=== PATIENT | male | born 1940 | race Caucasian/White ===

== ENCOUNTER → 2017-03-23 | Outpatient (CLI) | payer MEDICARE, OTHER ==
[~2017-03-23] MED LIST: ASP81 PO; ASPI-715 PO; BARIUM SULFATE 176 GM BTL PO ONE; BARIUM SULFATE 340 GM POWD ONE; DON PO; FISH OIL1 CAP PO; GLUC-135 PO; GLUC-283 PO; HCTZ; KET10 PO; LOR5/325 PO; MULT-820 PO; MULT1TAB64 PO; OXYC-868 PO; PANT40TA65 PO; PER PO; SAW450CA3 PO; STOPPED ASA; TAM4 PO; TAMS0.4C25 PO
--- NOTE | 2017-03-23 14:33 | RADIOLOGY IMAGING REPORT ---
FACILITY: [facility] PATIENT NAME: Robert Segundo : 1940 MR: [id number] V: [id number] EXAM DATE: ORDERING PHYSICIAN: MIGUEL ANGEL BERNSTEIN TECHNOLOGIST: Location: [facility] Patient: Robert Segundo : 1940 Visit/Account:[id number] Date of Sevice: 03/23/2017 Exam type: UPPER GI SERIES W/O AIR History: Left upper quadrant pain Comparison: None. Findings: Double contrast upper GI series was performed with thick and thin barium. There is a small hiatal he rnia. A moderate amount of gastroesophageal reflux was observed. A 12 mm barium tablet did enter th e stomach without obstruction although did appear to be mild narrowing of the distal esophagus. The patient did aspirate barium into the tracheobronchial tree.. No abnormality of the stomach duodenal bulb or duodenal C-loop was seen. The fluoroscopy dose area product was 818.91 micro-Mancuso per meter squared IMPRESSION: 1. Small hiatal hernia with a moderate amount of gastroesophageal reflux and mild narrowing at the d istal esophagus The patient did aspirate the barium into the tracheobronchial tree during the examination. He was in no apparent distress when he left the radiology department. A modified barium swallow may be helpfu l Report Dictated By: Tessa Ham MD at 03/23/2017 2:25 PM Report E-Signed By: Tessa Ham MD at 03/23/2017 2:28 PM WSN:[email or web address]
== END ==
LOC: RAD 03:55
PROVIDERS: ATTEND Surgery
DX: K44.9 Diaphragmatic hernia without obstruction or gangrene (principal); K21.9 Gastro-esophageal reflux disease without esophagitis; K22.2 Esophageal obstruction
CPT/HCPCS: 74240

== ENCOUNTER 2017-03-28 04:10 | Day surgery (SDC) | payer MEDICARE, OTHER ==
[~2017-03-28] VITALS: Ht 185.4 cm; Wt 73.5 kg
[2017-03-28] VITALS (7 sets, daily range): BP systolic 119–148; BP diastolic 78–104
[~2017-03-28 04:10] MED LIST changes: -BARIUM SULFATE 176 GM BTL PO ONE; -BARIUM SULFATE 340 GM POWD ONE
[2017-03-28] MEDS ORDERED: LIDOCAINE MPF 1% 5 ML VIAL ONE (10:55)
[2017-03-28] MEDS ORDERED: PROPOFOL EMUL(*) 10MG/ML 20 ML 40 ML ONE (10:55)
[2017-03-28] MEDS ORDERED: NORMOSOL R SOLN(*) 1000 ML BAG 1,000 ML IV PRN (12:00)
[2017-03-28] MEDS ORDERED: MIDAZOLAM 2 MG/2 ML VIAL IVP PRN (12:00)
[2017-03-28] MEDS ORDERED: LIDOCAINE/SOD BICARB 8.4% SYR ID ONE (12:00)
--- NOTE | 2017-03-28 12:52 | Short(Outpt) Discharge Summary ---
Discharge Summary Reason for Hosp/Final Diag: (1) Family history of colon cancer in mother Hospital Course & Plan: Colonoscopy completed without problems but poor prep. (2) Personal history of colonic polyps Status: Chronic Departure Discharge to: Home, Self Care Discharge Instructions Home Meds Reported Medications Tamsulosin Hcl (FLOMAX) 0.4 Mg Cap.er.24h, 0.4 MG PO QDAY, CAP 03/20/17 Follow up Referrals: General Surgery - In Two Weeks @ Surgery, General with Miguel Angel Bernstein Md Diet: Regular Activity: As Tolerated Special Instructions: Your colonoscopy was completed without any problems but your prep was very poor. We will need to repeat your colonoscopy in the next couple of months. Crystal, my clinic nurse, will call you in the next day or two to schedule the gastric emptying study and a follow up appointment to see me back in my office. MIGUEL ANGEL BERNSTEIN MD Mar 28, 2017 12:52
== END 2017-03-28 14:20 | disposition short-term general hospital (02) ==
LOC: OR 04:10
PROVIDERS: ATTEND Surgery
DX: Z12.11 Encounter for screening for malignant neoplasm of colon (principal); Z86.010 Personal history of colon polyps; Z80.0 Family history of malignant neoplasm of digestive organs
CPT/HCPCS: 00812; G0121; J2001; J2704

== ENCOUNTER → 2017-04-12 | Outpatient (CLI) | payer MEDICARE, OTHER ==
--- NOTE | 2017-04-12 12:57 | RADIOLOGY IMAGING REPORT ---
FACILITY: [facility] [place] PATIENT NAME: Robert Segundo : 1940 MR: [id number] V: [id number] EXAM DATE: ORDERING PHYSICIAN: MIGUEL ANGEL BERNSTEIN TECHNOLOGIST: Location: [facility] [place] Patient: Robert Segundo : 1940 Visit/Account:[id number] Date of Sevice: 04/12/2017 GASTRIC EMPTYING HISTORY: Left upper quadrant abdominal pain TECHNIQUE: 2.2 mCi technetium 99m sulfur colloid was mixed with 4 ounces of cooked eggbeaters which was 8 with toast and small volume of water. The patient ingested the mixture while seated in an uprig ht position. Multiple sequential gamma camera images were obtained of the upper abdomen. A computer-g enerated region of interest was placed around the stomach and the time activity curve for the stomach was derived and the gastric emptying T1/2 was calculated. COMPARISON: Upper GI 03/23/2017 FINDINGS: Image assessment: Normal filling of stomach, no evidence of gastroesophageal reflux and normal progr ession of radionuclide into proximal small bowel. Half life radionuclide in the stomach: 103 minutes (normal 20-45 minutes). 4 hour emptying greater than 90%, (normal greater than 90%). IMPRESSION: 1. Delayed early gastric emptying, but normal late gastric emptying. Report Dictated By: Alysha Mendes MD at 04/12/2017 12:48 PM Report E-Signed By: Alysha Mendes MD at 04/12/2017 12:52 PM WSN:[id number]
== END ==
LOC: NUC 02:40
PROVIDERS: ATTEND Surgery
DX: R10.12 Left upper quadrant pain (principal)
CPT/HCPCS: 78264; A9541

== ENCOUNTER 2017-04-18 13:00 | Outpatient (RCR) | payer MEDICARE, OTHER ==
--- NOTE | 2017-02-21 11:07 | SLP PLAN OF CARE ---
SPEECH PATHOLOGY PROGRESS REPORT - Physician: Radha Dimas SLIVER LAP MACHINE TENDER Progress Note Date: 02-20-17 Clinician: Leila Tejada M.S., CCC-QUARTZ MOUNTER Patient: Robert Segundo : 1940 The patient has been attends ST at [facility] 2/wk for a total of 6tx since last report. He attends scheduled visits regularly and is now driving. His neurologist cleared him to drive this week. 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 -progressing: Pt reports decreased word finding events outside of tx. Within tx pt averages 80-90%. Pt reports he does not feel he has returned to PLOF with this cognitive skill 2. Pt will demonstrate improved vocal production with max phonation time of 8- 10seconds with good vocal quality to improve overall intelligibility of speech -progressing: pt reports is is performing tasks as instructed for home program including EMST and max phonation tasks. Vocal quality is has improved overall but good quality is intermittent with breathy, low volume voice persisting approx 3-4 days a week as reported by pt. GOALS MET 1. Patient will carry out directives of increasing complexity in everyday activities with 90%. -progressing: Pt has returned to limited work responsibilities. He has returned to driving. Within tx he typically averages 95% accuracy SUMMARY Pt has returned to limited work responsibilities. He has returned to driving. He reports continued word finding deficits outside of tx and this is supported within tx performances. Pt reports increased compliance with at home voice program. Vocal quality has improved overall but good quality is intermittent with breathy, low volume voice persisting approx 3-4 days a week as reported by pt. RECOMMENDATION In response to the patients progress, it is recommended ST continue at 2wk6 to address above CURRENT POC Thank you for referring this patient to [facility], Speech- Language Pathology. Please call [phone] to contact the QUARTZ MOUNTER. PROGNOSIS: Very Good. Pt progressing toward his goals. Thank you for this referral. Please call [phone] Leila Tejada M.S., CCC-QUARTZ MOUNTER LSVT [facility] Certified [facility] Certified Physician Signature Date MTDD
--- NOTE | 2017-02-21 13:03 | PT PLAN OF CARE ---
Physician: Dr. 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 MET In 6 weeks pt will improve CB&M score to > 65/96 indicating improve functional mobility with ADL's. In Progress In 6 weeks pt will be able to maintain SLS balance for >30 B indicating improved functional balance for ADL's. In Progress PATIENT'S GOAL: Return to prior functional as much as he can attain Status of Patient's Goals: 1/3 Goals MET, 2/3 In progress Patient Compliance: Excellent Prognosis: Excellent Reasons for continuing therapy: Peter shows improvement in balance as well as power and speed with functional movement resulting in decreased fall risk and improved mobility. Deficits remain in single leg stance activities as well as with lingering strength deficits between sides. Further PT is indicated to return patient to prior level of function and decrease future injuries with equalizing strength deficits. Gait: Wide LEMUEL with lateral and horizontal trunk shifting Strength: R LE 4+/5 quads and hip flexors, 4/5 hamstrings, ankle DF and peroneals are 5-/5 while L LE 5/5 except hamstrings 4/5. Special Tests: CB&M 01/26/17 Score 63/96 Mobility: Sit<>stand without UE use in one attempt If you have any questions or concerns, please feel free to contact me at . Thank you, Maihsa Aguirre, PT, DPT, CLT [facility]
--- NOTE | 2017-03-23 18:01 | PT PLAN OF CARE ---
Physician: Dr. 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 MET In 6 weeks pt will improve CB&M score to > 65/96 indicating improve functional mobility with ADL's. MET In 6 weeks pt will be able to maintain SLS balance for >30 B indicating improved functional balance for ADL's. In Progress PATIENT'S GOAL: Return to prior functional as much as he can attain Status of Patient's Goals: 2/3 Goals MET, 2/3 In progress Patient Compliance: Excellent Prognosis: Excellent Reasons for continuing therapy: Robert continues to show improvement in speed, strength, and stability. As progress is maintained pt expectations of further progress are raised with pt realizing his potential. Further PT is indicated for this patient for progress towards lingering deficits in gait and SLS balance to decrease fall risk and further potential injury. Gait: Wide LEMUEL with lateral and horizontal trunk shifting Strength: R LE 4+/5 quads and hip flexors, 4/5 hamstrings, ankle DF and peroneals are 5-/5 while L LE 5/5 except hamstrings 4/5. Special Tests: CB&M 03/21/17 Score 69/96 Mobility: Sit<>stand without UE use in one attempt If you have any questions or concerns, please feel free to contact me at . Thank you, Maisha Aguirre, PT, DPT, CLT LILIAN
--- NOTE | 2017-04-03 14:22 | SLP PLAN OF CARE ---
SPEECH PATHOLOGY PROGRESS REPORT , 10th Visit Physician: Radha Dimas SUPERVISOR [employer]ANT Progress Note Date: 04-03-17 Clinician: Leila Tejada M.S., CCC-MONUMENT ERECTOR Patient: Robert Segundo : 1940 [address] patient attends [address] at [facility] 2/wk for a total of 10tx since last report. He attends scheduled visits regularly. He is driving and reports no problems. 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 -progressing: Pt reports he continues to experience difficulty with word finding in everyday conversation including high frequency words. He averages 80 -90% accuracy with word finding tasks in treatment given extended response time. Category and divergent naming that incorporates more abstract thinking are more challenging areas for the pt in treatment. Pt reports he does not feel he has returned to [facility] with this cognitive skill. 2. Pt will demonstrate improved vocal production with max phonation time of 8- 10seconds with good vocal quality to improve overall intelligibility of speech -progressing: Pt continues to report compliance with home voice program including EMST and max phonation tasks. Good vocal quality continues to be intermittent throughout the day. Pt reported that he experiences acid reflux more frequently but does not take medication for it. He reported that he has an appointment for an esophagram on 04/12/17 and will report back about that. Educated pt on the effects acid reflux has on his vocal hygiene. RECOMMENDATION In response to the patients progress, it is recommended ST continue at 2wk6 to address above POC. PROGNOSIS: Very Good. Pt progressing toward goals. Thank you for this referral. Please call [phone] Leila Tejada M.S., CCC-MONUMENT ERECTOR LSVT [facility] Certified [facility] Certified LILIAN
--- NOTE | 2017-04-20 11:50 | SLP DISCHARGE NOTE ---
SPEECH THERAPY DISCHARGE SUMMARY Discharge from : 04-17-17 Clinician: Leila Tejada M.S., CCC-CAVITY PUMP OPERATOR Patient: Robert Segundo : 1940 The pt has met all ST goals and is DC'd from as of 04-17-17 The patient has met the following goals: Short Term Goal 1.Pt will complete functional word finding tasks with 95% accuracy to improve functional communication for needs and wants. Goal Met: Pt is performing with 95-100% accuracy with this goal and has returned to plof 2. Pt will demonstrate improved vocal production with max phonation time of 8-10seconds with good vocal quality to improve overall intelligibility of speech. DC Goal: Pt has met max potential for this goal. He currently reaches average of 6second phonation time but reports he regularly achieves longer phonation times when practicing at home. Hole Digger Goal 1. 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 Vocal quality has improved but is not yet at plof. It is recommended the patient consult with an ENT for a possible laryngoscopy and return to speech therapy for further voice treatment at that time if indicated. Verbal and written education on supporting healthy cognitive aging through cognitive and physical activities, social engagement, and nutrition was provided as well as education on stroke awareness. It was a pleasure working with this patient. RECOMMENDATION DC from at this time. Continue with established home program for cognitive health. Thank you for referring this patient to , Speech- Language Pathology. Please call [phone] to contact the CAVITY PUMP OPERATOR. Respectfully, Leila Tejada M.S., CCC-CAVITY PUMP OPERATOR MTDD
--- NOTE | 2017-04-20 15:45 | PT PLAN OF CARE ---
Physician: Dr. 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 MET In 6 weeks pt will improve CB&M score to > 65/96 indicating improve functional mobility with ADL's. MET In 6 weeks pt will be able to maintain SLS balance for >30 B indicating improved functional balance for ADL's. In Progress PATIENT'S GOAL: Return to prior functional as much as he can attain Status of Patient's Goals: 2/3 Goals MET Patient Compliance: Excellent Prognosis: Excellent Reasons for discharge from therapy: Robert is to discharge from physical therapy at this time secondary to completion of 2/3 functional goals as well as with upcoming hospital admittance for prostate surgical intervention. Upon discharge pt showed good progress towards increased strength and balance for return to functioning. With improvements in physical therapy pt had increasing expectations of functional potential. At the time of discharge pt reported that he felt he was 75% of where he would like to be and will likely seek further PT intervention in the future to continue progress in functional recovery. Strength: B LE strength as tested by MMT: 5/5 in all functional planes excluding PF B at 4/5. Special Tests: CB&M 03/21/17 Score 69/96 CB&M 04/18/17 Score 71/96 Mobility: Sit<>stand without UE use in one attempt If you have any questions or concerns, please feel free to contact me at . Thank you, Maisha Aguirre, PT, DPT, CLT MTDD
== END 2017-04-18 18:00 | disposition home or self-care (01) ==
LOC: PT 13:00
PROVIDERS: ATTEND Physical Medicine & Rehabilitation
DX: I61.9 Nontraumatic intracerebral hemorrhage, unspecified (principal); I69.119 Unspecified symptoms and signs involving cognitive functions following nontraumatic intracerebral hemorrhage; R47.81 Slurred speech; R13.12 Dysphagia, oropharyngeal phase; R13.11 Dysphagia, oral phase; R26.89 Other abnormalities of gait and mobility; Z96.0 Presence of urogenital implants

== ENCOUNTER → 2017-05-17 | Outpatient (CLI) | payer MEDICARE, OTHER ==
--- NOTE | 2017-05-17 15:22 | RADIOLOGY IMAGING REPORT ---
FACILITY: [facility] [place] [place] PATIENT NAME: Robert Segundo : 1940 MR: [id number] V: [id number] EXAM DATE: ORDERING PHYSICIAN: POLI CADENA TECHNOLOGIST: Location: [facility] Patient: Robert Segundo : 1940 Visit/Account:[id number] Date of Sevice: 05/17/2017 TESTICULAR HISTORY: Scrotal swelling recent post prostatectomy COMPARISON: None. FINDINGS: Testes: The right testicle measures 4.1 x 2.5 x 2.3 cm with normal appearing arterial and venous flow . The left measures 4.9 x 2.5 x 2.8 cm and appears extremely heterogeneous and hypervascular particular ly along the upper two thirds of the left testicle. Epididymides: The head of the epididymis on the right measures 1.7 cm in diameter the head of the epididymis on the left measures two and meters in diameter appears heterogeneous. Small cysts are identified in both epididymides There is marked thickening of the scrotal skin. Hydrocele: Large bilateral hydroceles Varicocele: None. IMPRESSION: Large bilateral hydroceles and marked thickening of the scrotal skin these could represent postoperat shazia changes. The left testicle appears extremely heterogeneous and hypervascular. Changes could be related to orc hitis versus testicular tumor. Follow-up recommended Head epididymis on the left appears heterogeneous possibly related to epididymitis Report Dictated By: Tessa Ham MD at 05/17/2017 3:12 PM Report E-Signed By: Tessa Ham MD at 05/17/2017 3:17 PM WSN:[email or web address]
== END ==
LOC: US 01:12
PROVIDERS: ATTEND Physician Assistant
DX: N43.2 Other hydrocele (principal); N50.1 Vascular disorders of male genital organs; N50.89 Other specified disorders of the male genital organs
CPT/HCPCS: 76870

== ENCOUNTER → 2017-08-07 | Outpatient (CLI) | payer MEDICARE, OTHER ==
[~2017-08-07] MED LIST changes: +CHOL500016 PO; +RANI-318 PO; +SULF-198 PO
== END ==
LOC: LAB 07:51
PROVIDERS: ATTEND Physician Assistant Medical
DX: N45.1 Epididymitis (principal)
CPT/HCPCS: 36415; 84270; 84403

== ENCOUNTER → 2017-08-08 | Outpatient (CLI) | payer MEDICARE, OTHER ==
--- NOTE | 2017-08-08 10:22 | RADIOLOGY IMAGING REPORT ---
FACILITY: [facility] PATIENT NAME: Robert Segundo : 1940 MR: [id number] V: [id number] EXAM DATE: ORDERING PHYSICIAN: RUPERTO JACINTO TECHNOLOGIST: [place] [facility] [place] : 1940 Visit/Account:[id number] Date of Sevice: 08/08/2017 TESTICULAR HISTORY: Left-sided epididymitis COMPARISON: May 17, 2017 FINDINGS: Testes: The right testicle measures 4.4 x 2.5 x 2.5 cm.. Arterial and venous flow identified within the right testicle. No demonstration of a right testicular mass. The left testicle measures 3.9 x 2 .6 x 2.2 cm arterial and venous flow demonstrated.. The echotexture to the left testicle appears het erogeneous similar to the prior study. Epididymides: Head epididymis on the right measures 1.8 cm. Head epididymis on the left measures 1.2 cm and contains a small cyst. Blood flow is unremarkable in each epididymis by color Doppler ultras ound. Hydrocele: There are small bilateral hydroceles, right greater than left although both decreased in s ize when compared to the prior study Varicocele: None. IMPRESSION: Small bilateral hydroceles, right greater than left although decreased when compared the prior study The left testicle appears heterogeneous similar to the prior study. The differential diagnosis would include orchitis or testicular neoplasm although discrete testicular mass not demonstrated. Small cyst in the head epididymis on the left Report Dictated By: Tessa Ham MD at 08/08/2017 10:13 AM Report E-Signed By: Tessa Ham MD at 08/08/2017 10:18 AM WSN:[email or web address]
== END ==
LOC: US 01:19
PROVIDERS: ATTEND Physician Assistant Medical
DX: N43.2 Other hydrocele (principal); N50.3 Cyst of epididymis
CPT/HCPCS: 76870

== ENCOUNTER 2017-08-10 13:00 | Outpatient (RCR) | payer MEDICARE, OTHER ==
--- NOTE | 2017-05-14 16:26 | PT INITIAL EVALUATION ---
MEDICAL DIAGNOSIS: Post-CVA TREATMENT DIAGNOSIS: Altered gait and balance post-CVA DATE OF ONSET: 10/26/16 SUBJECTIVE: Robert Segundo returns to PT for gait, balance and strength improvement from his basal ganglia CVA (10/26/16). He had radical prostatectomy 04/20/17 and relates that he's weakened from that. He'd like to return to his prior level of function before his CVA, including recreations frisbee golf, exercising with weights and cardiovascular equipment for 30 to 90 minutes daily. Currently, Robert relates he is sedentary most of the day. REHAB PROBLEM LIST: Decreased Strength Decreased Endurance Decreased Balance Decreased Function Decreased Mobility Decreased Gait PREVIOUS MEDICAL HISTORY: Kidney cancer with tumor removal, B knees and ankle surgeries with worn R ankle, intermittent HTN. 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 OBJECTIVE: Posture: Heels 4" apart, mild forward head posture, midline head and trunk. ROM: LE AROM WNL. Strength: LE's 4/5. Special Tests: CB&M 49/96, a 51% impairment. Mobility: Independent transfers, without UE use with immediate standing balance. Gait: Robert ambulate with slow cadance, normal line of progression, reduced push off B and R fore foot weakness at heelstrike. Balance: R-sided balance disturbance with tandem stand, turning R 180 degrees. Cross over walking with infrequent R foot to midline but not past nelson. Single leg stand <3 seconds, B. Visual fixation without weaving in gait. Static stand on foam with eyes closed with increased postural sway A/P. Other Objective Findings: Standing endurance 10 minutes. ASSESSMENT: Robert Segundo presents with reduced balance, altered gait, weakness and limited endurance after his surgery in April, and from his CVA in 2017. He did well [facility] balance exercise today. Short Term Goals 4 weeks: Robert scores 60/96 on the CB&M, tolerates 30 min. of aerobic exercise. 8 weeks: Robert scores 71/96 on the CB&M, tolerates 60 min. of exercise, ambulates at a fast cadance. 12 weeks: Robert plays recreational frisbee golf with balance control, exercises 90 minutes, climbs multiple flights of stairs without rest. Patient's Goals Return to prior level of activity before the CVA. PLAN: Patient to be seen for Strengthening/condition Stretching Neuromuscular Re-ed Gait Trg/Balance Trg Home Exercise Program 3x/Week for 3-4 months Thank you for this referral. If you have any questions, comments, or concerns about this report or plan, please contact me at . HARRYD
--- NOTE | 2017-06-04 14:39 | PT PLAN OF CARE ---
Physician: LINDSEY Garza Patient is being seen: 3x/week Therapist: Petra Leslie PT Medical Diagnosis: Post-CVA Treatment Diagnosis: Altered gait and balance post-CVA Date of Onset: 10/26/16 Date of Initial Evaluation: 05/14/17 Date patient was last seen: 06/04/17 Number of treatments: 10 Number of cancellations/No shows: 0 INTERVENTIONS: Strengthening/condition Neuromuscular Re-ed Gait Trg/Balance Trg Home Exercise Program GOALS: 4 weeks: Robert scores 60/96 on the CB&M (met), tolerates 30 min. of aerobic exercise (progressing). 8 weeks: Not met: Robert scores 71/96 on the CB&M, tolerates 60 min. of exercise , ambulates at a fast cadance. 12 weeks: Not met: Robert plays recreational [employer] golf with balance control, exercises 90 minutes, climbs multiple flights of stairs without rest. PATIENT'S GOAL: Return to prior level of activity before the CVA. progressing Patient Compliance: Excellent Prognosis: Excellent Reasons for continuing therapy: S: Robert relates that he's still fatigued due to his infection, but feels more steady with gait and balance. His R ankle OA limits single leg standing activities in our balance training, otherwise, he feels his balance is challenged. Posture: Heels 4" apart, mild forward head posture, midline head and trunk. Strength: LE's 4+/5. Gait/Balance: Robert's gait endurance has improved to 1,933 feet in 6 minutes with good ankle DF endurance, strong push off. He's fatigued with one flight of stairs. Single leg stand now 18 seconds L, remains 3 seconds R due to R ankle OA. He turns with balance control, has slight perturbation with rapid walk/stop. Special Tests: CB&M improved from 49/96 to 60/96, a 37% impairment. Mobility: Independent transfers, without UE use with immediate standing balance. A/P: Robert Segundo is improving gait, endurance, balance and strength. His infection and antibiotic use does limit endurance. If you agree, we'll continue at 3x/week another 2 months to goals set. Thank you. LILIAN
--- NOTE | 2017-06-27 14:14 | PT PLAN OF CARE ---
Physician: LINDSEY Garza Patient is being seen: 3x/week Therapist: Petra Leslie PT Medical Diagnosis: Post-CVA Treatment Diagnosis: Altered gait and balance post-CVA Date of Onset: 10/26/16 Date of Initial Evaluation: 05/14/17 Date patient was last seen: 06/27/17 Number of treatments: 20 Number of cancellations/No shows: 0 INTERVENTIONS: Strengthening/condition, Neuromuscular Re-ed, Gait Trg/Balance Trg GOALS: 4 weeks: Robert scores 60/96 on the CB&M (met), tolerates 30 min. of aerobic exercise (met). 8 weeks: Robert scores 71/96 on the CB&M (progressing), tolerates 60 min. of exercise (not met), ambulates at a fast cadance (met). 12 weeks: Not met: Robert plays recreational [employer]OKK[employer]bee golf with balance control, exercises 90 minutes, climbs multiple flights of stairs without rest. PATIENT'S GOAL: Return to prior level of activity before the CVA. (progressing) Patient Compliance: Excellent Prognosis: Excellent Reasons for continuing therapy: S: Robert relates he's standing to cook meals and is doing gym exercise. He hasn' t been able to play frisbee golf, exercise 60 minutes or climb multiple flights of stairs yet. His infection/antibiotics fatigues him greatly. Posture: Heels 4" apart, mild forward head posture, midline head and trunk. ROM: LE AROM WNL. Strength: B hip flexion, abduction, extension: 4/5. B knee extension, B hip adduction: 5/5. B knee flexion: 4+/5. B ankle PF: 4/5. B ankle DF: 3/5. Gait: Gait speed increased to 6 ft/sec., 6 minute walk test 2180 feet, no stops. Balance: Single leg stand now 10 seconds R (R ankle OA), >45 seconds L. Special Tests: CB&M 70/96, a 27% impairment. Mobility: Independent transfers, without UE use with immediate standing balance. A/P: Robert Segundo is improving gait, balance, standing function. he needs to continue with balance, endurance work, strengthening to return to sports and standing function. If you agree, we'll continue 3x/week another 8 weeks. Thank you. LILIAN
--- NOTE | 2017-07-25 14:47 | PT PLAN OF CARE ---
Physician: LINDSEY Garza Patient is being seen: 3x/week Therapist: Petra Leslie PT Medical Diagnosis: Post-CVA Treatment Diagnosis: Altered gait and balance post-CVA Date of Onset: 10/26/16 Date of Initial Evaluation: 05/14/17 Date patient was last seen: 07/25/17 Number of treatments: 30 Number of cancellations/No shows: 0 INTERVENTIONS: Strengthening/condition Neuromuscular Re-ed Gait Trg/Balance Trg Home Exercise Program GOALS: 4 weeks: Robert scores 60/96 on the CB&M (met), tolerates 30 min. of aerobic exercise (met). 8 weeks: Not met: Robert scores 71/96 on the CB&M (met), tolerates 60 min. of exercise (progressing), ambulates at a fast cadance (met). 12 weeks: Not met: Robert plays recreational [employer] golf with balance control ( not met), exercises 90 minutes (not met), climbs multiple flights of stairs without rest (not met). PATIENT'S GOAL: Return to prior level of activity before the CVA (progressing). Patient Compliance: Excellent Prognosis: Excellent Reasons for continuing therapy: S: Robert reports he's walking around [place], has mowed half of his lawn. He isn't exercising a full 60 minutes consistently and hasn't returned to frisbee golf. He has c/o fatigue that hasn't changed. Posture: Heels 4" apart, mild forward head posture, midline head and trunk. Gait/balance: Fastest gait speed 6.0 ft/sec., 6 min. "walk" test 2,180 feet. Robert has mild dis-coordination with fast reciprocal foot motion on steps, is slow with lateral shuffling. Single leg stand 5-6 seconds.R, >20 sec. L. Special Tests: CB&M 49/96, a 51% impairment. Mobility: Independent transfers, without UE use with immediate standing balance. A/P: Robert Segundo continues to improve gait, mobility, balance. He could benefit from continued PT for higher level balance training and conditioning for return to his sport. If you agree, we'll continue 3x/week another 6 weeks. Thank you. LILIAN
== END 2017-08-12 ==
LOC: PT 13:00
PROVIDERS: ATTEND Nurse Practitioner Family
DX: I69.118 Other symptoms and signs involving cognitive functions following nontraumatic intracerebral hemorrhage (principal); R26.89 Other abnormalities of gait and mobility; Z90.79 Acquired absence of other genital organ(s)
CPT/HCPCS: 97162

== ENCOUNTER 2017-09-03 13:00 | Outpatient (RCR) | payer MEDICARE, OTHER ==
--- NOTE | 2017-08-13 15:03 | PT PLAN OF CARE ---
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 of aerobic exercise (met). 8 weeks: Not met: Robert scores 71/96 on the CB&M (met), tolerates 60 min. of exercise (progressing), ambulates at a fast cadance (met). 12 weeks: Not met: Robert plays recreational frisbee golf with balance control (progressing), exercises 90 minutes (not met), climbs multiple flights of stairs without rest (progressing), scores 80/96 on the CB&M (not met). PATIENT'S GOAL: Return to prior level of activity before the CVA (progressing). Patient Compliance: Excellent Prognosis: Excellent Reasons for continuing therapy: S: Robert reports he's walking around [place], has mowed his lawn by doing two sessions in one day, an improvement, changed heavy storm windows and has practiced but not competed in frisbee golf. He is still extremely fatigued. R ankle OA pain has flared with balance exercise. Posture: Heels 4" apart, mild forward head posture, midline head and trunk. Gait/balance: Fastest gait speed 6.0 ft/sec., 6 min. "walk" test 2,138 feet. CB& M wasn't done today as I didn't know he needed a three month note until he was fatigued. Robert demonstrated midline cross over stepping for balance recovery. Mobility: Independent. A/P: Robert Segundo continues to improve function and balance. He could benefit from continued PT for higher level balance training and conditioning for return to his sport. If you agree, we'll continue 3x/week another 8 weeks. Thank you. LILIAN
--- NOTE | 2017-09-03 14:00 | PT PLAN OF CARE ---
Physician: LINDSEY Garza Patient is being seen: 3x/week Therapist: Petra Leslie PT Medical Diagnosis: Post-CVA, radical proctectomy Treatment Diagnosis: Altered gait and balance post-CVA Date of Onset: 10/26/16 Date of Initial Evaluation: 05/14/17 Date patient was last seen: 09/03/17 Number of treatments: 44 Number of cancellations/No shows: 0 INTERVENTIONS: Strengthening/condition Neuromuscular Re-ed Gait Trg/Balance Trg GOALS: 4 weeks: Robert scores 60/96 on the CB&M (met), tolerates 30 min. of aerobic exercise (met). 8 weeks: Not met: Robert scores 71/96 on the CB&M (met), tolerates 60 min. of exercise (progressing), ambulates at a fast cadance (met). 12 weeks: Not met: Robert plays recreational frisbee golf with balance control (progressing), exercises 90 minutes (not met), climbs multiple flights of stairs without rest (progressing), scores 80/96 on the CB&M (not met). PATIENT'S GOAL: Return to prior level of activity before the CVA (partially met) . Patient Compliance: Excellent Prognosis: Excellent Reasons for discontinuing therapy: S: Robert relates he's ready to progress his exercise to the [employer] at . His fatigue level hasn't changed. Climbing several flights of stairs still requires a rest and he has practiced frisbee gold with half the distance in throwing. Posture: Heels 4" apart, mild forward head posture, midline head and trunk. Gait/Balance: Fast gait speed 6.1 ft/sec. (able to cross streets), jogging speed 6.8 ft/second. normal stepping, righting and stepping balance reactions. Special Tests: CB&M 70/96, a 26% impairment with Robert's right ankle OA limiting activities but not balance, vision or gait. Mobility: Independent transfers, without UE use with immediate standing balance. A/P: Robert Segundo has improved overall except fatigue level. He's maximized gains with PT. I'll DC PT to independent exercise. Thank you. LILIAN
== END 2017-09-03 18:00 | disposition home or self-care (01) ==
LOC: PT 13:00
PROVIDERS: ATTEND Nurse Practitioner Family
DX: I69.118 Other symptoms and signs involving cognitive functions following nontraumatic intracerebral hemorrhage (principal); R26.89 Other abnormalities of gait and mobility; Z90.79 Acquired absence of other genital organ(s)

== ENCOUNTER → 2017-09-15 | Outpatient (CLI) | payer MEDICARE, OTHER | LOC: RESP 19:32 | PROVIDERS: ATTEND Nurse Practitioner Family | DX: G47.33 Obstructive sleep apnea (adult) (pediatric) (principal); G47.61 Periodic limb movement disorder; G47.36 Sleep related hypoventilation in conditions classified elsewhere ==

== ENCOUNTER → 2017-10-11 | Outpatient (CLI) | payer MEDICARE, OTHER ==
[~2017-10-11] MED LIST changes: +CHOL200074 PO
== END ==
LOC: RESP 19:12
PROVIDERS: ATTEND Nurse Practitioner Family
DX: G47.33 Obstructive sleep apnea (adult) (pediatric) (principal); G47.36 Sleep related hypoventilation in conditions classified elsewhere

== ENCOUNTER 2017-10-16 00:10 | Day surgery (SDC) | payer MEDICARE, OTHER ==
[~2017-10-16] VITALS: Ht 188 cm; Wt 71.2 kg
[2017-10-16] MEDS ORDERED: PROPOFOL EMUL(*) 10MG/ML 20 ML 40 ML ONE (06:27)
[2017-10-16 07:39] VITALS: BP 143/99
[2017-10-16] MEDS ORDERED: LIDOCAINE/SOD BICARB 8.4% SYR ID ONE (08:00)
[2017-10-16] MEDS ORDERED: NORMOSOL R SOLN(*) 1000 ML BAG 1,000 ML IV PRN (08:00)
[2017-10-16 09:51] VITALS: BP 100/62
--- NOTE | 2017-10-16 09:57 | Short(Outpt) Discharge Summary ---
Discharge Summary Reason for Hosp/Final Diag: (1) Personal history of colonic polyps Status: Chronic Hospital Course & Plan: Colonoscopy with polypectomy x2 completed without problems. (2) Family history of colon cancer in mother Departure Discharge to: Home, Self Care Discharge Instructions Home Meds Reported Medications Cholecalciferol (Vitamin D3) (VITAMIN D-3) 2,000 Unit Capsule, 5000 UNIT PO QDAY , CAPSULE 10/09/17 Diet: Regular Activity: As Tolerated Special Instructions: Your colonoscopy was completed without problems and your prep was good (Good Job!!). I removed 2 small polyps from your colon. My office will call you in the next week to let you know what the pathology results are but in any case your next colonoscopy should be in 5 years, health permitting. MIGUEL ANGEL BERNSTEIN MD Oct 16, 2017 09:56
[2017-10-16 10:03] VITALS: BP 91/66
[2017-10-16 10:17] VITALS: BP 105/68
[2017-10-16] MEDS ORDERED: PROPOFOL EMUL(*) 10MG/ML 20 ML 20 ML ONE (10:33)
[2017-10-16 10:36] VITALS: BP 108/73
[2017-10-16 10:39] VITALS: BP 114/79
== END 2017-10-16 11:00 | disposition home or self-care (01) ==
LOC: OR 00:10
PROVIDERS: ATTEND Surgery
DX: Z12.11 Encounter for screening for malignant neoplasm of colon (principal); D12.0 Benign neoplasm of cecum; Z80.0 Family history of malignant neoplasm of digestive organs; Z86.010 Personal history of colon polyps
CPT/HCPCS: 00811; 45380; 88305; J2704

== ENCOUNTER 2017-11-28 16:26 | Emergency (ER) | payer MEDICARE, OTHER ==
--- NOTE | 2017-11-28 16:40 | ER Report ---
History and Physical Time Seen By MD: 16:40 HPI/ROS CHIEF COMPLAINT: Abdominal pain HISTORY OF PRESENT ILLNESS: 77-year-old patient presents to emergency room with complaint of left upper quadrant abdominal pain. Patient states the pain started approximately 5:00 this morning. States that he woke up early having pain. He states that pain has persisted throughout the day. He states that his been episodes where the pain had recessed for a couple of hours and then it returned. He states he was able to go workout this morning is able work out for an hour to and did not have any increasing pain during his workup. He states though that when he returned home that he had worsening pain. He did lay down and that seemed to help for short of time. The pain then returned and has persisted. Patient states is nothing seems to make the pain better or worse although laying down seemed to help, however this afternoon laying down and not improved at all. He is unsure what the underlying cause of his pain is. Patient has not taken any medicine for this. He denies any nausea, vomiting or diarrhea. REVIEW OF SYSTEMS: Respiratory: No cough, no dyspnea. Cardiovascular: No chest pain, no palpitations. Gastrointestinal: As noted above Musculoskeletal: No back pain. Allergies: Uncoded Allergies: MOLD EXTRACTS (Allergy, Mild, UNKNOWN, 03/26/17) POLLEN EXTRACTS (Allergy, Mild, UNKNOWN, 03/26/17) Home Meds Active Scripts Tamsulosin Hcl (FLOMAX) 0.4 Mg Cap.er.24h, 0.4 MG PO DAILY, #15 CAP Prov:ANDI TEJEDA [facility] 11/28/17 Hydrocodone Bit/Acetaminophen (HYDROCODON-ACETAMINOPHEN 5-325) 1 Each Tablet, 1 EACH PO Q4-6H PRN for PAIN, #12 TAB Prov:ANDI TEJEDA [facility] 11/28/17 Discontinued Reported Medications Cholecalciferol (Vitamin D3) (VITAMIN D-3) 2,000 Unit Capsule, 5000 UNIT PO QDAY, CAPSULE 10/09/17 Past Medical/Surgical History Patient has a past medical history of CVA, TIA, PVCs, hypertension, hyperlipidemia, asthma, pneumonia, and will hernia, reflux, frequent UTI, enlarged prostate, generalized arthritis, kidney cancer. Patient has surgical history of hernia repair, colonoscopy with polyps removed, total prostatectomy, knee surgery 3, bilateral ankle surgery, thumb surgery, skin lesions removed, surgery on bilateral kidneys for tumors. Reviewed Nurses Notes: Yes Hx Smoking: No Smoking Status: Never Smoker Hx Substance Use Disorder: No Hx Alcohol Use: No Constitutional Vital Sign - Last 24 Hours 11/28/17 11/28/17 11/28/17 11/28/17 16:32 16:42 16:56 17:12 Temp 97.9 Pulse 57 62 Resp 24 B/P (MAP) 180/129 (146) 169/106 (127) Pulse Ox 96 96 O2 Delivery Room Air 11/28/17 11/28/17 11/28/17 11/28/17 17:26 17:50 17:56 18:00 Pulse 67 78 B/P (MAP) 206/130 (155) 204/129 (154) Pulse Ox 93 94 Physical Exam General Appearance: The patient is alert, has no immediate need for airway protection and no current signs of toxicity. ENT: Tympanic membranes are pearly-salguero, auditory canals are patent. Mucous membranes are dry. Respiratory: Chest is non tender, lungs are clear to auscultation. Cardiac: regular rate and rhythm Gastrointestinal: Abdomen is soft and non tender, no masses, bowel sounds normal. Musculoskeletal: Neck: Neck is supple and non tender. Extremities have full range of motion and are non tender. Skin: No rashes or lesions. DIFFERENTIAL DIAGNOSIS: After history and physical exam differential diagnosis was considered for abdominal pain including but not limited to appendicitis, cholecystitis, gastritis and urinary tract infection. Included in the differential is diverticulitis, kidney stone. Medical Decision Making Data Points Result Diagram: 11/28/17 1709 11/28/17 1709 Laboratory Hematology Test 11/28/17 16:39 11/28/17 17:09 Urine Color Yellow Urine Clarity Slightly-cloudy Urine pH 5.0 pH (4.8-9.5) Urine Specific Crivitz 1.019 Urine Protein Negative mg/dL (NEGATIVE) Urine Glucose (UA) Negative mg/dL (NEGATIVE) Urine Ketones Negative mg/dL (NEGATIVE) Urine Blood Large (NEGATIVE) Urine Nitrite Negative (NEGATIVE) Urine Bilirubin Negative (NEGATIVE) Urine Urobilinogen Negative mg/dL (0.2-1.9) Urine Leukocyte Esterase Negative (NEGATIVE) Urine RBC 106 /HPF (0-2/HPF) Urine WBC <1 /HPF (0-5/HPF) Urine Squamous Epithelial Cells None /LPF (</=FEW) Urine Bacteria Negative /HPF (NONE-FEW) Urine Mucus Few /HPF (NONE-FEW) Red Blood Count 5.17 M/uL (4.00-5.60) Mean Corpuscular Volume 96.0 fL (80.0-96.0) Mean Corpuscular Hemoglobin 32.6 pg (26.0-33.0) Mean Corpuscular Hemoglobin Concent 33.9 g/dL (32.0-36.0) Red Cell Distribution Width 14.1 % (11.5-14.5) Mean Platelet Volume 9.0 fL (7.2-11.1) Neutrophils (%) (Auto) 82.1 % (39.4-72.5) Lymphocytes (%) (Auto) 10.3 % (17.6-49.6) Monocytes (%) (Auto) 6.6 % (4.1-12.4) Eosinophils (%) (Auto) 0.5 % (0.4-6.7) Basophils (%) (Auto) 0.5 % (0.3-1.4) Nucleated RBC Relative Count (auto) 0.0 /100WBC Neutrophils # (Auto) 9.2 K/uL (2.0-7.4) Lymphocytes # (Auto) 1.2 K/uL (1.3-3.6) Monocytes # (Auto) 0.7 K/uL (0.3-1.0) Eosinophils # (Auto) 0.1 K/uL (0.0-0.5) Basophils # (Auto) 0.1 K/uL (0.0-0.1) Nucleated RBC Absolute Count (auto) 0.00 K/uL Sodium Level 144 mmol/L (137-145) Potassium Level 3.9 mmol/L (3.5-5.0) Chloride Level 105 mmol/L (98-107) Carbon Dioxide Level 28 mmol/L (22-30) Blood Urea Nitrogen 28 mg/dl (9-21) Creatinine 1.40 mg/dl (0.66-1.25) Glomerular Filtration Rate Calc 49.1 Random Glucose 128 mg/dl (75-110) Calcium Level 9.4 mg/dl (8.4-10.2) Total Bilirubin 0.7 mg/dl (0.2-1.3) Aspartate Amino Transf (AST/SGOT) 19 U/L (0-35) Alanine Aminotransferase (ALT/SGPT) 25 U/L (0-56) Alkaline Phosphatase 59 U/L (0-126) Total Protein 7.4 g/dl (6.3-8.2) Albumin 4.3 g/dl (3.5-5.0) Amylase Level 85 U/L (0-110) Lipase 30 U/L (23-300) Helicobacter pylori IgG Antibody Negative (NEGATIVE) Chemistry Test 11/28/17 16:39 11/28/17 17:09 Urine Color Yellow Urine Clarity Slightly-cloudy Urine pH 5.0 pH (4.8-9.5) Urine Specific Crivitz 1.019 Urine Protein Negative mg/dL (NEGATIVE) Urine Glucose (UA) Negative mg/dL (NEGATIVE) Urine Ketones Negative mg/dL (NEGATIVE) Urine Blood Large (NEGATIVE) Urine Nitrite Negative (NEGATIVE) Urine Bilirubin Negative (NEGATIVE) Urine Urobilinogen Negative mg/dL (0.2-1.9) Urine Leukocyte Esterase Negative (NEGATIVE) Urine RBC 106 /HPF (0-2/HPF) Urine WBC <1 /HPF (0-5/HPF) Urine Squamous Epithelial Cells None /LPF (</=FEW) Urine Bacteria Negative /HPF (NONE-FEW) Urine Mucus Few /HPF (NONE-FEW) White Blood Count 11.2 k/uL (4.5-11.0) Red Blood Count 5.17 M/uL (4.00-5.60) Hemoglobin 16.8 g/dL (14.0-18.0) Hematocrit 49.6 % (42.0-52.0) Mean Corpuscular Volume 96.0 fL (80.0-96.0) Mean Corpuscular Hemoglobin 32.6 pg (26.0-33.0) Mean Corpuscular Hemoglobin Concent 33.9 g/dL (32.0-36.0) Red Cell Distribution Width 14.1 % (11.5-14.5) Platelet Count 227 K/uL (150-450) Mean Platelet Volume 9.0 fL (7.2-11.1) Neutrophils (%) (Auto) 82.1 % (39.4-72.5) Lymphocytes (%) (Auto) 10.3 % (17.6-49.6) Monocytes (%) (Auto) 6.6 % (4.1-12.4) Eosinophils (%) (Auto) 0.5 % (0.4-6.7) Basophils (%) (Auto) 0.5 % (0.3-1.4) Nucleated RBC Relative Count (auto) 0.0 /100WBC Neutrophils # (Auto) 9.2 K/uL (2.0-7.4) Lymphocytes # (Auto) 1.2 K/uL (1.3-3.6) Monocytes # (Auto) 0.7 K/uL (0.3-1.0) Eosinophils # (Auto) 0.1 K/uL (0.0-0.5) Basophils # (Auto) 0.1 K/uL (0.0-0.1) Nucleated RBC Absolute Count (auto) 0.00 K/uL Glomerular Filtration Rate Calc 49.1 Calcium Level 9.4 mg/dl (8.4-10.2) Total Bilirubin 0.7 mg/dl (0.2-1.3) Aspartate Amino Transf (AST/SGOT) 19 U/L (0-35) Alanine Aminotransferase (ALT/SGPT) 25 U/L (0-56) Alkaline Phosphatase 59 U/L (0-126) Total Protein 7.4 g/dl (6.3-8.2) Albumin 4.3 g/dl (3.5-5.0) Amylase Level 85 U/L (0-110) Lipase 30 U/L (23-300) Helicobacter pylori IgG Antibody Negative (NEGATIVE) Urinalysis Test 11/28/17 16:39 Urine Color Yellow Urine Clarity Slightly-cloudy Urine pH 5.0 pH (4.8-9.5) Urine Specific Crivitz 1.019 Urine Protein Negative mg/dL (NEGATIVE) Urine Glucose (UA) Negative mg/dL (NEGATIVE) Urine Ketones Negative mg/dL (NEGATIVE) Urine Blood Large (NEGATIVE) Urine Nitrite Negative (NEGATIVE) Urine Bilirubin Negative (NEGATIVE) Urine Urobilinogen Negative mg/dL (0.2-1.9) Urine Leukocyte Esterase Negative (NEGATIVE) Urine RBC 106 /HPF (0-2/HPF) Urine WBC <1 /HPF (0-5/HPF) Urine Squamous Epithelial Cells None /LPF (</=FEW) Urine Bacteria Negative /HPF (NONE-FEW) Urine Mucus Few /HPF (NONE-FEW) EKG/Imaging Imaging EXAMINATION: CT abdomen and pelvis with IV contrast HISTORY: Left upper quadrant abdominal pain. TECHNIQUE: Axial CT images of the abdomen and pelvis were obtained with IV contrast, with coronal and sagittal 2D reconstructed images. One of the following dose optimization techniques was utilized in the performance of this exam: Automated exposure control; adjustment of the mA and/or kV according to the patient's size; or use of an iterative reconstruction technique. Specific details can be referenced in the facility's radiology CT exam operational policy. Contrast: 75 mL of IV Isovue-370. COMPARISON: 04/20/2011. FINDINGS: Liver: Negative. Gallbladder and bile ducts: Negative. Spleen: Negative. Pancreas: Negative. Adrenal glands: Negative. Kidney/ureters/bladder: Moderate hydronephrosis of the left kidney with dilatation of the left ureter to the UVJ. There is an obstructing 3 mm calculus along the posterior left bladder wall in the region of the left UVJ. There are surgical changes along the left kidney compatible with a prior partial nephrectomy with interval resection of a small enhancing mass present on the prior exam of 2011. A small amount of perinephric fluid surrounds the left kidney and tracks along the retroperitoneum, which could be related to a forniceal rupture from obstructive uropathy. There is a mildly delayed left nephrogram compatible with obstructive uropathy. No right-sided hydronephrosis or urinary calculi. Additional surgical changes of a partial right nephrectomy. Subcentimeter hypodensities in both kidneys likely represent small cysts. The urinary bladder is relatively decompressed. There is mild diffuse wall thickening of the bladder with some trabeculation which may relate to chronic bladder outlet obstruction. TURP defect along the central prostate. Bowel and peritoneum: The small bowel and colon are normal in caliber, without evidence of obstruction or any focal inflammatory process. Scattered colonic diverticulosis, without evidence of diverticulitis. Unremarkable appendix. No free fluid or free intraperitoneal air. Lymph node assessment: Negative. Vessels: Scattered vascular calcifications. Normal caliber abdominal aorta. Musculoskeletal: No acute osseous findings. Multilevel degenerative changes throughout the spine. Vertebral body height is maintained along the lumbar spine. Body wall: Small fat-containing umbilical hernia. Lung bases: Negative. IMPRESSION: 1. Moderate hydronephrosis of the left kidney, with an obstructing 3 mm calculus in the distal left ureter at the UVJ. Small amount of retroperitoneal fluid on the left may be due to an associated forniceal rupture. 2. No other acute intra-abdominal findings. 3. Surgical changes along both kidneys compatible with prior partial nephre ctomies. 4. Colonic diverticulosis. Report Dictated By: Bradford Brooks MD at 11/28/2017 5:51 PM Report E-Signed By: Bradford Brooks MD at 11/28/2017 6:01 PM ED Course/Re-evaluation ED Course Patient was admitted to an exam room, history and physical were obtained. Differential diagnoses were considered. On examination lungs are clear, heart was regular, abdomen was soft nontender. I was unable to palpate any areas of tenderness on exam. A CBC, CMP, urinalysis, CT scan of abdomen and pelvis were done. The lab work showed a slightly elevated white count of 11,200. There was a slight shift with 82% neutrophils. I do believe that the left shift of the white blood cells is likely related to stress response secondary to the pain. Urinalysis showed a large amount of blood, 102 red blood cells per high-power field. CMP showed elevated creatinine 1.4 with GFR 43. Patient received a [address] scan of abdomen and pelvis did show a 3 mm stone at the UVJ. I did discuss this with the patient. I believe that is likely the cause of his discomfort. We will go ahead and discharge patient home with Flomax and hydrocodone. He is to limit his activity by pain. If he does not have any improvement in his symptoms the next week eyelike in follow-up with urology. He is return to the emergency room if condition worsens. I discussed this with patient and his and they verbalized understanding and agreement with plan. Decision to Disposition Date: Nov 28, 2017 Decision to Disposition Time: 18:33 Depart Departure Latest Vital Signs Vital Signs Date Time Temp Pulse Resp B/P (MAP) Pulse Ox O2 Delivery O2 Flow Rate FiO2 11/28/17 18:00 204/129 (154) 11/28/17 17:56 78 94 11/28/17 16:32 97.9 24 Room Air Impression: Primary Impression: Kidney stone Condition: Improved Disposition: HOME OR SELF-CARE Referrals: WEN SPRING (PCP) New Scripts Tamsulosin Hcl (FLOMAX) 0.4 Mg Cap.er.24h 0.4 MG PO DAILY, #15 CAP Prov: ANDI TEJEDA 11/28/17 Hydrocodone Bit/Acetaminophen (HYDROCODON-ACETAMINOPHEN 5-325) 1 Each Tablet 1 EACH PO Q4-6H PRN for PAIN, #12 TAB Prov: ANDI TEJEDA 11/28/17 Patient Instructions: Kidney Stones (ED) Additional Instructions: Increase fluid intake. Get plenty of rest. Follow up with your primary care provider in the next week for blood pressure. If pain persists I would encourage you to follow up with Urology. Return to the ER if condition worsens. You may have a normal diet. ANDI TEJEDA Nov 28, 2017 16:40
[2017-11-28] MEDS ORDERED: NS(*) 0.9% 500 ML BAG 500 ML IV ONE (17:00)
[2017-11-28] MEDS ORDERED: IOPAMIDOL 76% 75 ML INFUS BTL 75 ML ONE (17:11)
[2017-11-28 17:16] LABS: PLATELET COUNT, AUTOMATED 227 K/uL (150-450)
[2017-11-28 18:00] VITALS: BP 204/129
--- NOTE | 2017-11-28 18:05 | RADIOLOGY IMAGING REPORT ---
FACILITY: [facility] PATIENT NAME: Robert Segundo : 1940 MR: [id number] V: [id number] EXAM DATE: ORDERING PHYSICIAN: ANDI TEJEDA TECHNOLOGIST: Location: [facility] [place] Patient: Robert Segundo : 1940 Visit/Account:[id number] Date of Sevice: 11/28/2017 EXAMINATION: CT abdomen and pelvis with IV contrast HISTORY: Left upper quadrant abdominal pain. TECHNIQUE: Axial CT images of the abdomen and pelvis were obtained with IV contrast, with coronal a nd sagittal 2D reconstructed images. One of the following dose optimization techniques was utilized in the performance of this exam: Autom ated exposure control; adjustment of the mA and/or kV according to the patient's size; or use of an i terative reconstruction technique. Specific details can be referenced in the facility's radiology C T exam operational policy. Contrast: 75 mL of IV Isovue-370. COMPARISON: 04/20/2011. FINDINGS: Liver: Negative. Gallbladder and bile ducts: Negative. Spleen: Negative. Pancreas: Negative. Adrenal glands: Negative. Kidney/ureters/bladder: Moderate hydronephrosis of the left kidney with dilatation of the left urete r to the UVJ. There is an obstructing 3 mm calculus along the posterior left bladder wall in the price on of the left UVJ. There are surgical changes along the left kidney compatible with a prior partial nephrectomy with int erval resection of a small enhancing mass present on the prior exam of 2011. A small amount of perine phric fluid surrounds the left kidney and tracks along the retroperitoneum, which could be related to a forniceal rupture from obstructive uropathy. There is a mildly delayed left nephrogram compatible with obstructive uropathy. No right-sided hydronephrosis or urinary calculi. Additional surgical changes of a partial right neph rectomy. Subcentimeter hypodensities in both kidneys likely represent small cysts. The urinary bladder is relatively decompressed. There is mild diffuse wall thickening of the bladder with some trabeculation which may relate to chronic bladder outlet obstruction. TURP defect along the central prostate. Bowel and peritoneum: The small bowel and colon are normal in caliber, without evidence of obstructi on or any focal inflammatory process. Scattered colonic diverticulosis, without evidence of diverticu litis. Unremarkable appendix. No free fluid or free intraperitoneal air. Lymph node assessment: Negative. Vessels: Scattered vascular calcifications. Normal caliber abdominal aorta. Musculoskeletal: No acute osseous findings. Multilevel degenerative changes throughout the spine. V ertebral body height is maintained along the lumbar spine. Body wall: Small fat-containing umbilical hernia. Lung bases: Negative. IMPRESSION: 1. Moderate hydronephrosis of the left kidney, with an obstructing 3 mm calculus in the distal left u reter at the UVJ. Small amount of retroperitoneal fluid on the left may be due to an associated forni ceal rupture. 2. No other acute intra-abdominal findings. 3. Surgical changes along both kidneys compatible with prior partial nephrectomies. 4. Colonic diverticulosis. Report Dictated By: Bradford Brooks MD at 11/28/2017 5:51 PM Report E-Signed By: Bradford Brooks MD at 11/28/2017 6:01 PM WSN:[id number]
[2017-11-28] MEDS ORDERED: HYDR-385 PO (18:31)
[2017-11-28] MEDS ORDERED: TAMS0.4C25 PO (18:31)
== END 2017-11-28 18:48 | disposition home or self-care (01) ==
LOC: ER 16:43
DX: N20.0 Calculus of kidney (principal)
CPT/HCPCS: 74177; 81001; 82150; 83690; 85025; 86677; 96360; 99284; J7040; Q9967; 82040; 82247; 82310; 82374; 82435; 82565; 82947; 84075; 84132; 84155; 84295; 84450; 84460; 84520

== ENCOUNTER → 2017-12-19 | Outpatient (CLI) | payer MEDICARE, OTHER ==
[~2017-12-19] MED LIST changes: +HYDR-385 PO
--- NOTE | 2017-12-19 14:26 | RADIOLOGY IMAGING REPORT ---
FACILITY: [facility] PATIENT NAME: Robert Segundo : 1940 MR: [id number] V: [id number] EXAM DATE: ORDERING PHYSICIAN: WEN SPRING TECHNOLOGIST: Location: [facility] Patient: Robert Segundo : 1940 Visit/Account:[id number] Date of Sevice: 12/19/2017 Study: PELVIS Indication: Pain Comparison study: None available Findings: AP and frog-leg views of the pelvis in supine position demonstrates presence of mild left a nd moderate right degenerative disease of the hip joints. There is no evidence of acute bony abnormal ity. There is no evidence of lytic or blastic bony lesions. There is no evidence of lytic or blastic bony lesions. There are stress changes at the pubic symphysi s noted. The sacroiliac joints are unremarkable. IMPRESSION: Degenerative disease as described. There is no evidence of acute bony abnormality. Report Dictated By: Rm Doran at 12/19/2017 1:55 PM Report E-Signed By: Rm Doran at 12/19/2017 2:22 PM WSN:[id number]
== END ==
LOC: RAD 13:13
PROVIDERS: ATTEND Nurse Practitioner Family
DX: M16.0 Bilateral primary osteoarthritis of hip (principal)
CPT/HCPCS: 72170

== ENCOUNTER → 2018-02-19 | Outpatient (CLI) | payer MEDICARE, OTHER ==
--- NOTE | 2018-02-19 13:07 | RADIOLOGY IMAGING REPORT ---
FACILITY: [facility] PATIENT NAME: Robert Segundo : 1940 MR: [id number] V: [id number] EXAM DATE: ORDERING PHYSICIAN: GEORGE BANERJEE TECHNOLOGIST: Location: [facility] [place] Patient: Robert Segundo : 1940 Visit/Account:[id number] Date of Sevice: 02/19/2018 Study: MRI brain without the use of intravenous contrast Indication: Slurred speech, history of stroke, gait disturbance Comparison study: January 08, 2017 Technique: Multiplanar MRI sequences were obtained through the brain without the use of intravenous g adolinium contrast. The examination demonstrates no evidence of acute intracranial hemorrhage. There is no evidence of ex tra-axial collection or hydrocephalus. A diffusion-weighted sequence was performed and demonstrates no evidence of active ischemia. There is no evidence of active infarction. There are extensive patchy areas of high T2-weighted signal present within the supratentorial white m atter centrally. This is consistent with chronic ischemia. There is an old left external capsule he morrhage present. The hemorrhage cavity is slitlike. There is no evidence of acute hemorrhage assoc iated with this finding. There are hemosiderin products present associated with this finding. This is unchanged as compared to the previous study. There is no evidence of intracranial mass lesion. There is an old lacunar infarct involving the right basal ganglion. This is also unchanged. The orbits are grossly unremarkable. There is no significant abnormality of the paranasal sinuses present. IMPRESSION: No acute intracranial abnormality identified. There is no evidence of active ischemia. There is no evidence of intracranial mass lesion. There is no significant change in the appearance o f the brain parenchyma as compared to the previous study. Report Dictated By: Rm Doran at 02/19/2018 1:00 PM Report E-Signed By: Rm Doran at 02/19/2018 1:03 PM WSN:[id number]
== END ==
LOC: MRI 07:20
PROVIDERS: ATTEND Psychiatry & Neurology Neurology
DX: I62.9 Nontraumatic intracranial hemorrhage, unspecified (principal); R47.81 Slurred speech; Z86.73 Personal history of transient ischemic attack (TIA), and cerebral infarction without residual deficits; I61.9 Nontraumatic intracerebral hemorrhage, unspecified; R26.9 Unspecified abnormalities of gait and mobility
CPT/HCPCS: 70551

== ENCOUNTER → 2018-04-16 | Outpatient (CLI) | payer MEDICARE, OTHER ==
[2018-04-16 09:09] LABS: PLATELET COUNT, AUTOMATED 243 K/uL (150-450)
--- NOTE | 2018-04-16 10:28 | RADIOLOGY IMAGING REPORT ---
FACILITY: [facility] PATIENT NAME: Robert Segundo : 1940 MR: [id number] V: [id number] EXAM DATE: ORDERING PHYSICIAN: WEN SPRING TECHNOLOGIST: Location: [facility] Patient: Robert Segundo : 1940 Visit/Account:[id number] Date of Sevice: 04/16/2018 Exam type: CHEST PA LAT History: Shortness of breath x1 week, stroke 1.5 years ago Comparison: November 20, 2016 Findings: Again noted is hyperinflation of the lung bowie. There is no evidence of acute appearing infiltrate s, pleural effusions or pulmonary edema. No evidence of a pneumothorax or pneumomediastinum. The ca rdiac silhouette is normal in size.. IMPRESSION: 1. Hyperinflation of the lung bowie although no evidence of acute pulmonary consolidation Report Dictated By: Tessa Ham MD at 04/16/2018 10:17 AM Report E-Signed By: Tessa Ham MD at 04/16/2018 10:25 AM WSN:[email or web address]
== END ==
LOC: LAB 08:43
PROVIDERS: ATTEND Nurse Practitioner Family
DX: I10 Essential (primary) hypertension (principal); R06.02 Shortness of breath; E55.9 Vitamin D deficiency, unspecified
CPT/HCPCS: 36415; 71046; 82040; 82247; 82306; 82310; 82374; 82435; 82565; 82947; 84075; 84132; 84155; 84295; 84450; 84460; 84520; 85025

== ENCOUNTER → 2018-04-18 | Outpatient (CLI) | payer MEDICARE, OTHER | LOC: RESP 01:03 | PROVIDERS: ATTEND Nurse Practitioner Family | DX: J98.4 Other disorders of lung (principal) | CPT/HCPCS: 94060; 94726; 94729 ==

== ENCOUNTER → 2018-08-01 | Outpatient (CLI) | payer MEDICARE, OTHER ==
[2018-08-01 15:28] LABS: PLATELET COUNT, AUTOMATED 208 K/uL (150-450)
--- NOTE | 2018-08-01 18:34 | EKG ---
FACILITY: [facility] PATIENT NAME: LOLA DUARTE : [id number] MR: [id number] V: [id number] EXAM DATE: ORDERING PHYSICIAN: WEN SPRING TECHNOLOGIST: SHELLEY Test Reason : SOB Blood Pressure : / mmHG Vent. Rate : 071 BPM Atrial Rate : 071 BPM P-R Int : 176 ms QRS Dur : 098 ms QT Int : 424 ms P-R-T Axes : 069 049 035 degrees QTc Int : 460 ms Sinus rhythm with frequent premature ventricular complexes and Possible premature atrial complexes wi th aberrant conduction Otherwise normal ECG When compared with ECG of 26-OCT-2016 07:22, premature ventricular complexes are now present aberrant conduction is now present Confirmed by MILI GARCIA ([id number]) on 08/01/2018 9:09:38 PM Referred By: SAW Confirmed By:MILI GARCIA
== END ==
LOC: RESP 14:33
PROVIDERS: ATTEND Nurse Practitioner Family
DX: R06.02 Shortness of breath (principal); I49.9 Cardiac arrhythmia, unspecified; D64.9 Anemia, unspecified
CPT/HCPCS: 36415; 85025; 93005

== ENCOUNTER → 2018-08-26 | Outpatient (CLI) | payer MEDICARE, OTHER ==
[~2018-08-26] MED LIST changes: +REGADENOSON 0.4 MG/5 ML SYR ONE
--- NOTE | 2018-08-26 12:33 | RADIOLOGY IMAGING REPORT ---
FACILITY: [facility] [place] PATIENT NAME: Robert Segundo : 1940 MR: [id number] V: [id number] EXAM DATE: ORDERING PHYSICIAN: JULIA RICKS TECHNOLOGIST: Location: [facility] Patient: Robert Segundo : 1940 Visit/Account:[id number] Date of Sevice: 08/26/2018 EXAMINATION: Single isotope SPECT imaging with regadenoson infusion and gated SPECT imaging. DATE OF EXAMINATION: 08/26/2018. DATE OF INTERPRETATION: 08/26/2018. REQUESTING PHYSICIAN: JULIA RICKS. INDICATION: The patient is a 77-year-old male evaluated for shortness of breath. PROCEDURE: After informed consent the patient received an intravenous injection of 11.9 mCi of Tc-99 m sestamibi followed at an appropriate time interval by rest imaging. The patient then subsequently received an intravenous infusion of 0.4 mg of regadenoson per protocol without complication. Resting heart rate was 63 bpm with a peak heart rate of 83 bpm. Blood pressure at rest was 158 / 104 and fo llowing infusion was 158 / 104. Baseline EKG demonstrates normal sinus rhythm, no ST or T-wave abnor malities. There were no EKG changes of ischemia following infusion. Symptoms were nonspecific. The patient then received an intravenous injection of 29.0 mCi of Tc-99m sestamibi followed by stress im aging. RAW DATA: Examination of the summed raw data revealed a good quality study. Increased GI uptake note d in the inferior wall. MYOCARDIAL PERFUSION: The tomographic images demonstrate mild defects in the inferior wall at rest a nd stress consistent with increased GI uptake, defect resolves with prone imaging suggesting artifact . GATED IMAGES: The gated images demonstrate normal wall motion, ejection fraction 52%. IMPRESSION: 1. Good quality study increased GI uptake artifact noted in the inferior wall. 2. Normal myocardial perfusion scan. 3. Normal LV systolic function; LVEF 52%. 4. Based on the results of this exam, the patient appears to be at low risk for future cardiovascular events but remains intermediate risk due to inability to exercise. Report Dictated By: Vidal Brown at 08/26/2018 12:24 PM Report E-Signed By: Vidal Brown at 08/26/2018 12:26 PM WSN:[id number]
== END ==
LOC: NUC 00:53
PROVIDERS: ATTEND Internal Medicine Cardiovascular Disease
DX: R06.02 Shortness of breath (principal)
CPT/HCPCS: 78452; 93017; A9500; J2785

== ENCOUNTER 2018-08-30 14:48 | Emergency (ER) | payer MEDICARE, OTHER ==
[~2018-08-30 14:48] MED LIST changes: -ASPI-1471 PO; -ATOR40TA24 PO; -CLOP75TA PO; -LISI5TAB25 PO; -METO25TA23 PO
--- NOTE | 2018-08-30 14:50 | ER Report ---
History and Physical Time Seen By MD: 14:48 HPI/ROS CHIEF COMPLAINT: Altered mental status, 2 episodes of urinary incontinence, disorientation HISTORY OF PRESENT ILLNESS: Patient is a 77-year-old male here with complaints of a fall this morning with subsequent development of disorientation, lethargy. Upon further review with the patient's , he had become lethargic starting yesterday, had an episode of urinary incontinence this morning and has progressively worsened over the course of the day. Patient is oriented to self but has some confusion regarding place and time. Patient currently takes Symbicort but takes no other medications. 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 Patient is not currently on anticoagulation. Denies pain at this time. REVIEW OF SYSTEMS: Constitutional: No fever, no chills. Eyes: No discharge. ENT: No sore throat. Cardiovascular: No chest pain, no palpitations. Respiratory: No cough, no shortness of breath. Gastrointestinal: No abdominal pain, no vomiting. Genitourinary: No hematuria. + 2 episodes of urinary incontinence Musculoskeletal: No back pain. Skin: No rashes. Neurological: No headache. + Lethargy, disorientation Allergies: Uncoded Allergies: MOLD EXTRACTS (Allergy, Mild, UNKNOWN, 03/26/17) POLLEN EXTRACTS (Allergy, Mild, UNKNOWN, 03/26/17) Home Meds Active Scripts Tamsulosin Hcl (FLOMAX) 0.4 Mg Cap.er.24h, 0.4 MG PO DAILY, #15 CAP Prov:ADNI TEJEDA [facility] 11/28/17 Hydrocodone Bit/Acetaminophen (HYDROCODON-ACETAMINOPHEN 5-325) 1 Each Tablet, 1 EACH PO Q4-6H PRN for PAIN, #12 TAB Prov:ANDI TEJEDA [facility] 11/28/17 Hx Smoking: No Smoking Status: Never Smoker Hx Substance Use Disorder: No Hx Alcohol Use: No Constitutional Vital Sign - Last 24 Hours 08/30/18 14:52 Temp 97.6 Pulse 40 Resp 20 B/P (MAP) 142/76 Pulse Ox 93 O2 Delivery Room Air Physical Exam General Appearance: Patient is reportedly lethargic, disoriented, multiple episodes of urinary incontinence which started before the patient fell today. Eyes: Pupils equal and round no pallor or injection. ENT, Mouth: Mucous membranes are moist. Respiratory: There are no retractions, lungs are clear to auscultation. Cardiovascular: Regular rate and rhythm. Gastrointestinal: Abdomen is soft and non tender, no masses, bowel sounds normal. Neurological: Mildly disoriented, moving all extremities spontaneously Skin: Warm and dry, no rashes. Musculoskeletal: Neck is supple non tender. Extremities are nontender, nonswollen and have full range of motion. DIFFERENTIAL DIAGNOSIS: After history and physical exam differential diagnosis was considered for altered mental status including but not limited to hypoglycemia, infectious process, electrolyte abnormality, head injury and intoxicants. Medical Decision Making Data Points Result Diagram: 08/30/18 1507 08/30/18 1507 Laboratory Hematology Test 08/30/18 15:07 08/30/18 15:18 08/30/18 15:43 Red Blood Count 4.47 M/uL (4.00-5.60) Mean Corpuscular Volume 98.4 fL (80.0-96.0) Mean Corpuscular Hemoglobin 32.8 pg (26.0-33.0) Mean Corpuscular Hemoglobin Concent 33.3 g/dL (32.0-36.0) Red Cell Distribution Width 14.3 % (11.5-14.5) Mean Platelet Volume 9.5 fL (7.2-11.1) Neutrophils (%) (Auto) 87.8 % (39.4-72.5) Lymphocytes (%) (Auto) 7.0 % (17.6-49.6) Monocytes (%) (Auto) 5.0 % (4.1-12.4) Eosinophils (%) (Auto) 0.0 % (0.4-6.7) Basophils (%) (Auto) 0.2 % (0.3-1.4) Nucleated RBC Relative Count (auto) 0.0 /100WBC Neutrophils # (Auto) 9.5 K/uL (2.0-7.4) Lymphocytes # (Auto) 0.8 K/uL (1.3-3.6) Monocytes # (Auto) 0.5 K/uL (0.3-1.0) Eosinophils # (Auto) 0.0 K/uL (0.0-0.5) Basophils # (Auto) 0.0 K/uL (0.0-0.1) Nucleated RBC Absolute Count (auto) 0.00 K/uL Erythrocyte Sedimentation Rate < 1 mm/HOUR (0-20) Sodium Level 140 mmol/L (137-145) Potassium Level 4.6 mmol/L (3.5-5.0) Chloride Level 103 mmol/L (98-107) Carbon Dioxide Level 25 mmol/L (22-30) Blood Urea Nitrogen 31 mg/dl (9-21) Creatinine 1.30 mg/dl (0.66-1.25) Glomerular Filtration Rate Calc 53.5 Random Glucose 213 mg/dl (75-110) Lactate 2.6 mmol/L (0.7-2.1) Calcium Level 9.7 mg/dl (8.4-10.2) Total Bilirubin 1.2 mg/dl (0.2-1.3) Aspartate Amino Transf (AST/SGOT) 180 U/L (0-35) Alanine Aminotransferase (ALT/SGPT) 56 U/L (0-56) Alkaline Phosphatase 55 U/L (0-126) Ammonia < 9 UMOL/L (9-33) Total Creatine Kinase 1082 U/L (55-170) Troponin I 27.800 ng/ml C-Reactive Protein 0.9 mg/dl (<1.0) Total Protein 6.3 g/dl (6.3-8.2) Albumin 4.0 g/dl (3.5-5.0) Lipase 31 U/L (23-300) Serum Alcohol < 10 mg/dl Whole Blood Glucose 203 mg/DL (75-110) Blood Gas Patient Temperature 97.8 DEGREES Venous Blood pH 7.36 (7.31-7.41) Venous Blood Partial Pressure CO2 40 mmHg Venous Blood Partial Pressure O2 < 35 mmHg Venous Blood HCO3 23 mmol/L Venous Blood Oxygen Saturation 61 % Venous Blood Base Excess -3 mmol/L Oxygen Liters/Minute 93 Chemistry Test 08/30/18 15:07 08/30/18 15:18 08/30/18 15:43 White Blood Count 10.8 k/uL (4.5-11.0) Red Blood Count 4.47 M/uL (4.00-5.60) Hemoglobin 14.7 g/dL (14.0-18.0) Hematocrit 44.0 % (42.0-52.0) Mean Corpuscular Volume 98.4 fL (80.0-96.0) Mean Corpuscular Hemoglobin 32.8 pg (26.0-33.0) Mean Corpuscular Hemoglobin Concent 33.3 g/dL (32.0-36.0) Red Cell Distribution Width 14.3 % (11.5-14.5) Platelet Count 212 K/uL (150-450) Mean Platelet Volume 9.5 fL (7.2-11.1) Neutrophils (%) (Auto) 87.8 % (39.4-72.5) Lymphocytes (%) (Auto) 7.0 % (17.6-49.6) Monocytes (%) (Auto) 5.0 % (4.1-12.4) Eosinophils (%) (Auto) 0.0 % (0.4-6.7) Basophils (%) (Auto) 0.2 % (0.3-1.4) Nucleated RBC Relative Count (auto) 0.0 /100WBC Neutrophils # (Auto) 9.5 K/uL (2.0-7.4) Lymphocytes # (Auto) 0.8 K/uL (1.3-3.6) Monocytes # (Auto) 0.5 K/uL (0.3-1.0) Eosinophils # (Auto) 0.0 K/uL (0.0-0.5) Basophils # (Auto) 0.0 K/uL (0.0-0.1) Nucleated RBC Absolute Count (auto) 0.00 K/uL Erythrocyte Sedimentation Rate < 1 mm/HOUR (0-20) Glomerular Filtration Rate Calc 53.5 Lactate 2.6 mmol/L (0.7-2.1) Calcium Level 9.7 mg/dl (8.4-10.2) Total Bilirubin 1.2 mg/dl (0.2-1.3) Aspartate Amino Transf (AST/SGOT) 180 U/L (0-35) Alanine Aminotransferase (ALT/SGPT) 56 U/L (0-56) Alkaline Phosphatase 55 U/L (0-126) Ammonia < 9 UMOL/L (9-33) Total Creatine Kinase 1082 U/L (55-170) Troponin I 27.800 ng/ml C-Reactive Protein 0.9 mg/dl (<1.0) Total Protein 6.3 g/dl (6.3-8.2) Albumin 4.0 g/dl (3.5-5.0) Lipase 31 U/L (23-300) Serum Alcohol < 10 mg/dl Whole Blood Glucose 203 mg/DL (75-110) Blood Gas Patient Temperature 97.8 DEGREES Venous Blood pH 7.36 (7.31-7.41) Venous Blood Partial Pressure CO2 40 mmHg Venous Blood Partial Pressure O2 < 35 mmHg Venous Blood HCO3 23 mmol/L Venous Blood Oxygen Saturation 61 % Venous Blood Base Excess -3 mmol/L Oxygen Liters/Minute 93 Coagulation Test 08/30/18 15:07 Toxicology Test 08/30/18 15:07 Serum Alcohol < 10 mg/dl EKG/Imaging EKG Interpretation FACILITY: [facility] PATIENT NAME: LOLA DUARTE : [id number] MR: [id number] V: [id number] EXAM DATE: ORDERING PHYSICIAN: IBAN GROSS TECHNOLOGIST: ISI Barba Reason : Blood Pressure : / mmHG Vent. Rate : 071 BPM Atrial Rate : 071 BPM P-R Int : 172 ms QRS Dur : 104 ms QT Int : 434 ms P-R-T Axes : 068 005 010 degrees QTc Int : 471 ms Sinus rhythm with frequent premature ventricular complexes in a pattern of bigeminy Otherwise normal ECG When compared with ECG of 01-AUG-2018 14:42, aberrant conduction is no longer present Referred By: RENATO Confirmed By: Imaging PATIENT NAME: Lola Duarte : 1940 MR: [id number] V: [id number] EXAM DATE: ORDERING PHYSICIAN: IBAN GROSS TECHNOLOGIST: Location: [facility] Patient: Lola Duarte : 1940 Visit/Account:[id number] Date of Sevice: 08/30/2018 Technique: CHEST SINGLE AP HISTORY: AMS Comparison studies: 04/16/2018 FINDINGS: No acute airspace consolidation. No pleural effusion. The cardiac silhouette is unchanged. IMPRESSION: 1. No acute cardiopulmonary process. PATIENT NAME: Lola Duarte : 1940 MR: [id number] V: [id number] EXAM DATE: ORDERING PHYSICIAN: IBAN GROSS TECHNOLOGIST: Location: [facility] Patient: Lola Duarte : 1940 Visit/Account:[id number] Date of Sevice: 08/30/2018 EXAMINATION: CT Head without intravenous contrast HISTORY: Altered mental status. TECHNIQUE: Axial images were obtained from the skull base to the vertex without intravenous contrast. Sagittal and coronal reformatted images are also submitted. One of the following dose optimization techniques was utilized in the performance of this exam: Automated exposure control; adjustment of the mA and/or kV according to the patient's size; or use of an iterative reconstruction technique. Specific details can be referenced in the facility's radiology CT exam operational policy. COMPARISON: Brain MRI dated 02/19/2018. FINDINGS: Brain volume: Mild generalized volume loss. Ventricles: Negative. Acute ischemic changes: None. Hemorrhage: None. Masses / edema: None. Mancuso-white: Negative. White matter: Stable moderate to severe chronic white matter disease, n onspecific but most likely representing chronic microvascular ischemia. Vessels: Calcified plaque in the carotid siphons and vertebral arteries. Normal density in the dural venous sinuses. Extra-axial: Negative. Calvarium / skull base: Negative. Visualized sinuses / orbits: Negative. IMPRESSION: No acute intracranial abnormality. Report Dictated By: Rajesh Chadwick MD at 08/30/2018 3:57 PM Report E-Signed By: Rajesh Chadwick MD at 08/30/2018 4:01 PM ED Course/Re-evaluation ED Course Patient is a 77-year-old male who is here due to lethargy, 2 episodes of urinary incontinence, a fall this morning, weakness, disorientation. Patient was amarilisa isaac at [facility] office today who transferred the patient to the emergency department for further evaluation. Patient's reports that symptoms started yesterday, he had a fall this morning and developed progressive lethargy and weakness. Patient's EKG showed a sinus bradycardia with premature complexes. Patient's blood pressure remained stable, heart rate was in the 30s. Patient was maintaining oxygen levels in the mid to high 90s throughout ED course. There is no leukocytosis. There is mild a eye, electrolytes are stable, CPK was elevated at 1000. Patient's troponin came back at 27. Patient was given heparin bolus, heparin infusion aspirin and fluid bolus. I discussed the patient with who is the hospitalist over at [facility]. Patient was accepted to their service and the patient was transported via helicopter for further treatment and care. Patient was stable at time of transfer. Decision to Disposition Date: Aug 30, 2018 Decision to Disposition Time: 16:20 Depart Departure Latest Vital Signs Vital Signs Date Time Temp Pulse Resp B/P (MAP) Pulse Ox O2 Delivery O2 Flow Rate FiO2 08/30/18 14:52 97.6 40 20 142/76 93 Room Air Impression: Primary Impression: NSTEMI (non-ST elevated myocardial infarction) Additional Impressions: BASIM (acute kidney injury) Weakness Condition: Condition Unchanged ([facility]) Disposition: XFER TO [facility]UTE [facility]ARE [facility] Referrals: [facility] (PCP) Problem Qualifiers IBAN GROSS DO Aug 30, 2018 14:50
[2018-08-30] MEDS ORDERED: NS(*) 0.9% 1000 ML BAG 1,000 ML IV ONE (15:02)
[2018-08-30 15:42] LABS: PLATELET COUNT, AUTOMATED 212 K/uL (150-450)
--- NOTE | 2018-08-30 15:49 | EKG ---
FACILITY: [facility] [place] PATIENT NAME: LOLA DUARTE : [id number] MR: [id number] V: [id number] EXAM DATE: ORDERING PHYSICIAN: IBAN GROSS TECHNOLOGIST: ISI Barba Reason : Blood Pressure : / mmHG Vent. Rate : 071 BPM Atrial Rate : 071 BPM P-R Int : 172 ms QRS Dur : 104 ms QT Int : 434 ms P-R-T Axes : 068 005 010 degrees QTc Int : 471 ms Sinus rhythm with frequent premature ventricular complexes in a pattern of bigeminy Otherwise normal ECG When compared with ECG of 01-AUG-2018 14:42, aberrant conduction is no longer present Confirmed by MIGUEL ANGEL CONN ([id number]) on 08/31/2018 6:27:04 AM Referred By: RENATO Confirmed By:MIGUEL ANGEL CONN
[2018-08-30] MEDS ORDERED: HEPARIN SOD/D5W 25000/250 ML 250 ML IV ONE ×2 (15:57→16:15)
[2018-08-30] MEDS ORDERED: HEPARIN (PORC) 5000 UN/ML VIAL IVP ONE (16:00)
--- NOTE | 2018-08-30 16:01 | RADIOLOGY IMAGING REPORT ---
FACILITY: [facility] PATIENT NAME: Robert eSgundo : 1940 MR: [id number] V: [id number] EXAM DATE: ORDERING PHYSICIAN: IBAN GROSS TECHNOLOGIST: Location: [facility] [place] Patient: Robert Segundo : 1940 Visit/Account:[id number] Date of Sevice: 08/30/2018 Technique: CHEST SINGLE AP HISTORY: AMS Comparison studies: 04/16/2018 FINDINGS: No acute airspace consolidation. No pleural effusion. The cardiac silhouette is unchanged. IMPRESSION: 1. No acute cardiopulmonary process. Report Dictated By: Celso Leal DO at 08/30/2018 3:56 PM Report E-Signed By: Celso Leal DO at 08/30/2018 3:57 PM [id number]
--- NOTE | 2018-08-30 16:07 | RADIOLOGY IMAGING REPORT ---
FACILITY: [facility] [place] PATIENT NAME: Robert Segundo : 1940 MR: [id number] V: [id number] EXAM DATE: ORDERING PHYSICIAN: IBAN GROSS TECHNOLOGIST: Location: [facility] Patient: Robert Segundo : 1940 Visit/Account:[id number] Date of Sevice: 08/30/2018 EXAMINATION: CT Head without intravenous contrast HISTORY: Altered mental status. TECHNIQUE: Axial images were obtained from the skull base to the vertex without intravenous contrast . Sagittal and coronal reformatted images are also submitted. One of the following dose optimization techniques was utilized in the performance of this exam: Autom ated exposure control; adjustment of the mA and/or kV according to the patient's size; or use of an i terative reconstruction technique. Specific details can be referenced in the facility's radiology C T exam operational policy. COMPARISON: Brain MRI dated 02/19/2018. FINDINGS: Brain volume: Mild generalized volume loss. Ventricles: Negative. Acute ischemic changes: None. Hemorrhage: None. Masses / edema: None. Mancuso-white: Negative. White matter: Stable moderate to severe chronic white matter disease, nonspecific but most likely re presenting chronic microvascular ischemia. Vessels: Calcified plaque in the carotid siphons and vertebral arteries. Normal density in the dural venous sinuses. Extra-axial: Negative. Calvarium / skull base: Negative. Visualized sinuses / orbits: Negative. IMPRESSION: No acute intracranial abnormality. Report Dictated By: Rajesh Chadwick MD at 08/30/2018 3:57 PM Report E-Signed By: Rajesh Chadwick MD at 08/30/2018 4:01 PM WSN:[id number]
[2018-08-30] MEDS ORDERED: ASPIRIN 81 MG CHEW PO ONE (16:15)
[2018-08-30 16:30] VITALS: BP 139/85
--- NOTE | 2018-08-30 17:54 | EKG ---
FACILITY: [facility] PATIENT NAME: LOLA DUARTE : [id number] MR: [id number] V: [id number] EXAM DATE: ORDERING PHYSICIAN: IBAN RGOSS TECHNOLOGIST: Test Reason : Blood Pressure : / mmHG Vent. Rate : 073 BPM Atrial Rate : 073 BPM P-R Int : 164 ms QRS Dur : 098 ms QT Int : 438 ms P-R-T Axes : 072 023 051 degrees QTc Int : 482 ms Sinus rhythm with frequent premature ventricular complexes in a pattern of bigeminy Otherwise normal ECG When compared with ECG of 30-AUG-2018 15:00, No significant change was found Confirmed by MIGUEL ANGEL CONN ([id number]) on 08/31/2018 6:27:24 AM Referred By: Confirmed By:MIGUEL ANGEL CONN
== END 2018-08-30 16:54 | disposition short-term general hospital (02) ==
LOC: ER 14:54
DX: I21.4 Non-ST elevation (NSTEMI) myocardial infarction (principal); N17.9 Acute kidney failure, unspecified; R53.1 Weakness
CPT/HCPCS: 36415; 36416; 70450; 71045; 82140; 82550; 82803; 82948; 83605; 83690; 84443; 84484; 85025; 85651; 85730; 86140; 87040; 93005; 96361; 96374; 99285; A9270; G0480; J1644; J7030; 80320; 82040; 82247; 82310; 82374; 82435; 82565; 82947; 84075; 84132; 84155; 84295; 84450; 84460; 84520

== ENCOUNTER → 2018-08-30 | Outpatient (REF) ==
[~2018-08-30] MED LIST changes: +ASPI-1471 PO; +ATOR40TA24 PO; +CLOP75TA PO; +LISI5TAB25 PO; +METO25TA23 PO; -REGADENOSON 0.4 MG/5 ML SYR ONE
== END ==
LOC: AMB 16:22
PROVIDERS: ATTEND Nurse Practitioner
DX: Z02.9 Encounter for administrative examinations, unspecified (principal)

== ENCOUNTER 2018-09-13 17:02 | Emergency (ER) | payer MEDICARE, OTHER ==
[~2018-09-13 17:02] MED LIST changes: -ASPI-1471 PO; -ATOR40TA24 PO; -CLOP75TA PO; -LISI5TAB25 PO; -METO25TA23 PO
[2018-09-13] MEDS ORDERED: cloNIDine HCL 0.1 MG TAB PO ONE (17:15)
--- NOTE | 2018-09-13 17:27 | EKG ---
FACILITY: [facility] [place] PATIENT NAME: LOLA DUARTE : [id number] MR: [id number] V: [id number] EXAM DATE: ORDERING PHYSICIAN: MADISON CORTES TECHNOLOGIST: DARRIN Barba Reason : CARDIAC Blood Pressure : / mmHG Vent. Rate : 057 BPM Atrial Rate : 057 BPM P-R Int : 178 ms QRS Dur : 108 ms QT Int : 464 ms P-R-T Axes : 000 -30 -49 degrees QTc Int : 451 ms Sinus bradycardia with premature supraventricular complexes with occasional premature ventricular com plexes Possible left atrial enlargement Left axis deviation Inferior infarct , age undetermined Abnormal ECG Confirmed by SEVEN CUMMINGS ([id number]) on 09/13/2018 8:49:43 PM Referred By: Confirmed By:SEVEN CUMMINGS
--- NOTE | 2018-09-13 17:48 | ER Report ---
History and Physical Time Seen By MD: 17:00 Hx. of Stated Complaint: PATIENT REPORTS HOME HEALTH NURSE TOLD HIM TO COME IN [facility] HIS BLOOD PRESSURE WAS HIGH. NO SYMPTOMS AT THIS TIME. HAD HEART ATTACK LAST MONTH (MADISON CORTES MD) HPI/ROS CHIEF COMPLAINT: Redness of breath HISTORY OF PRESENT ILLNESS: 78-year-old male recent stent placement weeks ago comes back to the emergency department today for evaluation for progressively worsening shortness of breath. Patient was seen by his home health nurse noticed his blood pressure was a diastolic of 120 systolic of 168 bilaterally notices having some exertional dyspnea and increased pitting edema patient expressed worsening exertion exertional dyspnea and some mild orthopnea without PND. Patient again had a stent placed 2 weeks ago and is scheduled to have another stent placed next week. Patient denies active chest pain this time but had no chest pain with his prior KS. Patient denies abdominal pain nausea vomiting diarrhea fever chills or additional complaints noted REVIEW OF SYSTEMS: Respiratory: Shortness of breath no cough Cardiovascular: No chest pain or palpitation Gastrointestinal: No vomiting, no abdominal pain. Musculoskeletal: No back pain. Remainder of the 14 system rev: Yes (MADISON CORTES MD) Allergies: Uncoded Allergies: MOLD EXTRACTS (Allergy, Mild, UNKNOWN, 03/26/17) POLLEN EXTRACTS (Allergy, Mild, UNKNOWN, 03/26/17) Home Meds Reported Medications Metoprolol Succinate (METOPROLOL SUCCINATE) 25 Mg Tab.er.24h, 1 TAB PO QDAY, TAB 09/13/18 Lisinopril (LISINOPRIL) 5 Mg Tablet, 2.5 MG PO QDAY, TAB 09/13/18 Clopidogrel Bisulfate (CLOPIDOGREL) 75 Mg Tablet, 1 TAB PO QDAY, TAB 09/13/18 Atorvastatin Calcium (LIPITOR) 40 Mg Tablet, 2 TAB PO HS, TAB 09/13/18 Aspirin (ASPIR 81) 81 Mg Tablet.dr, 81 MG PO QDAY, TAB 09/13/18 Discontinued Scripts Tamsulosin Hcl (FLOMAX) 0.4 Mg Cap.er.24h, 0.4 MG PO DAILY, #15 CAP Prov:ANDI TEJEDA 11/28/17 Hydrocodone Bit/Acetaminophen (HYDROCODON-ACETAMINOPHEN 5-325) 1 Each Tablet, 1 EACH PO Q4-6H PRN for PAIN, #12 TAB Prov:ANDI TEJEDA 11/28/17 Reviewed Nurses Notes: Yes Old Medical Records Reviewed: Yes (MADISON CORTES MD) Hx Smoking: No Smoking Status: Never Smoker Hx Substance Use Disorder: No Hx Alcohol Use: No (MADISON CORTES MD) Constitutional Vital Sign - Last 24 Hours 09/13/18 09/13/18 09/13/18 09/13/18 17:08 17:13 17:23 17:30 Temp 98.2 Pulse 65 Resp 16 B/P (MAP) 176/121 (139) 176/121 170/116 (134) 172/117 (135) Pulse Ox 91 O2 Delivery Room Air 09/13/18 09/13/18 09/13/18 09/13/18 17:32 17:45 18:00 18:02 Pulse 57 ??? Resp 8 B/P (MAP) 173/118 (136) ???/??? (1665) Pulse Ox 94 09/13/18 09/13/18 09/13/18 09/13/18 18:11 18:15 18:30 18:32 Pulse 51 Resp 19 B/P (MAP) 166/115 (132) 155/123 (134) 139/85 (103) Pulse Ox 95 09/13/18 09/13/18 09/13/18 09/13/18 18:45 18:50 18:59 19:00 Pulse 49 Resp 17 B/P (MAP) 128/89 (102) 117/76 (90) Pulse Ox 93 O2 Flow Rate 1.0 09/13/18 09/13/18 09/13/18 09/13/18 19:15 19:20 19:30 19:45 Pulse 53 Resp 16 B/P (MAP) 112/79 (90) 122/74 (90) 114/81 (92) Pulse Ox 95 09/13/18 09/13/18 09/13/18 09/13/18 19:50 20:00 20:05 20:15 Pulse 48 51 Resp 9 13 B/P (MAP) 115/73 (87) 112/89 (97) Pulse Ox 94 95 09/13/18 09/13/18 09/13/18 09/13/18 20:30 20:35 20:40 20:45 Pulse 58 54 Resp 15 14 B/P (MAP) 128/84 (99) 115/70 (85) Pulse Ox 94 94 09/13/18 09/13/18 09/13/18 09/13/18 21:00 21:10 21:15 21:30 Pulse 54 Resp 20 B/P (MAP) 109/75 (86) 101/64 (76) 107/66 (80) Pulse Ox 94 09/13/18 09/13/18 09/13/18 09/13/18 21:40 21:45 21:50 22:00 Pulse 46 50 Resp 15 14 B/P (MAP) 109/59 (76) 115/69 (84) Pulse Ox 94 95 (YVROSE FONG DO) Physical Exam General Appearance: The patient is alert, has no immediate need for airway protection and no current signs of toxicity. [ ] Eyes: Pupils equal and round no injection. Respiratory: Chest is non tender, lungs are clear to auscultation. Cardiac: regular rate and rhythm [ ] Gastrointestinal: Abdomen is soft and non tender, no masses, bowel sounds normal. Musculoskeletal: Neck: Neck is supple and non tender. Extremities have full range of motion and are non tender. Skin: No rashes or lesions. [ ] DIFFERENTIAL DIAGNOSIS: After history and physical exam differential diagnosis was considered for myocardial infarction aortic dissection pulmonary edema secondary to congestive heart failure worsening congestive heart failure ischemia hypertension hypertensive urgency (MADISON CORTES MD) Medical Decision Making Data Points Result Diagram: 09/13/18 1714 09/13/18 1714 Laboratory Hematology Test 09/13/18 17:14 09/13/18 17:49 09/13/18 21:15 Red Blood Count 4.61 M/uL (4.00-5.60) Mean Corpuscular Volume 98.8 fL (80.0-96.0) Mean Corpuscular Hemoglobin 33.5 pg (26.0-33.0) Mean Corpuscular Hemoglobin Concent 33.9 g/dL (32.0-36.0) Red Cell Distribution Width 14.8 % (11.5-14.5) Mean Platelet Volume 10.2 fL (7.2-11.1) Neutrophils (%) (Auto) 71.5 % (39.4-72.5) Lymphocytes (%) (Auto) 17.6 % (17.6-49.6) Monocytes (%) (Auto) 7.4 % (4.1-12.4) Eosinophils (%) (Auto) 2.0 % (0.4-6.7) Basophils (%) (Auto) 1.5 % (0.3-1.4) Nucleated RBC Relative Count (auto) 0.1 /100WBC Neutrophils # (Auto) 5.1 K/uL (2.0-7.4) Lymphocytes # (Auto) 1.3 K/uL (1.3-3.6) Monocytes # (Auto) 0.5 K/uL (0.3-1.0) Eosinophils # (Auto) 0.1 K/uL (0.0-0.5) Basophils # (Auto) 0.1 K/uL (0.0-0.1) Nucleated RBC Absolute Count (auto) 0.01 K/uL D-Dimer Quantitative (PE/DVT) 0.53 ug/ml (0-0.50) Sodium Level 141 mmol/L (137-145) Potassium Level 4.3 mmol/L (3.5-5.0) Chloride Level 105 mmol/L (98-107) Carbon Dioxide Level 26 mmol/L (22-30) Blood Urea Nitrogen 27 mg/dl (9-21) Creatinine 1.20 mg/dl (0.66-1.25) Glomerular Filtration Rate Calc 58.6 Random Glucose 84 mg/dl (75-110) Calcium Level 9.4 mg/dl (8.4-10.2) Total Bilirubin 0.9 mg/dl (0.2-1.3) Aspartate Amino Transf (AST/SGOT) 25 U/L (0-35) Alanine Aminotransferase (ALT/SGPT) 48 U/L (0-56) Alkaline Phosphatase 65 U/L (0-126) B-Type Natriuretic Peptide 754 pg/ml (0-100) Total Protein 6.8 g/dl (6.3-8.2) Albumin 4.1 g/dl (3.5-5.0) Urine Color Yellow Urine Clarity Clear Urine pH 6.0 pH (4.8-9.5) Urine Specific Hart[place] 1.012 Urine Protein Negative mg/dL (NEGATIVE) Urine Glucose (UA) Negative mg/dL (NEGATIVE) Urine Ketones Negative mg/dL (NEGATIVE) Urine Blood Negative (NEGATIVE) Urine Nitrite Negative (NEGATIVE) Urine Bilirubin Negative (NEGATIVE) Urine Urobilinogen 2.0 mg/dL (0.2-1.9) Urine Leukocyte Esterase Negative (NEGATIVE) Urine RBC <1 /HPF (0-2/HPF) Urine WBC <1 /HPF (0-5/HPF) Urine Squamous Epithelial Cells Few /LPF (</=FEW) Urine Bacteria Negative /HPF (NONE-FEW) Urine Mucus None /HPF (NONE-FEW) Troponin I 0.081 ng/ml Chemistry Test 09/13/18 17:14 09/13/18 17:49 09/13/18 21:15 White Blood Count 7.1 k/uL (4.5-11.0) Red Blood Count 4.61 M/uL (4.00-5.60) Hemoglobin 15.5 g/dL (14.0-18.0) Hematocrit 45.6 % (42.0-52.0) Mean Corpuscular Volume 98.8 fL (80.0-96.0) Mean Corpuscular Hemoglobin 33.5 pg (26.0-33.0) Mean Corpuscular Hemoglobin Concent 33.9 g/dL (32.0-36.0) Red Cell Distribution Width 14.8 % (11.5-14.5) Platelet Count 216 K/uL (150-450) Mean Platelet Volume 10.2 fL (7.2-11.1) Neutrophils (%) (Auto) 71.5 % (39.4-72.5) Lymphocytes (%) (Auto) 17.6 % (17.6-49.6) Monocytes (%) (Auto) 7.4 % (4.1-12.4) Eosinophils (%) (Auto) 2.0 % (0.4-6.7) Basophils (%) (Auto) 1.5 % (0.3-1.4) Nucleated RBC Relative Count (auto) 0.1 /100WBC Neutrophils # (Auto) 5.1 K/uL (2.0-7.4) Lymphocytes # (Auto) 1.3 K/uL (1.3-3.6) Monocytes # (Auto) 0.5 K/uL (0.3-1.0) Eosinophils # (Auto) 0.1 K/uL (0.0-0.5) Basophils # (Auto) 0.1 K/uL (0.0-0.1) Nucleated RBC Absolute Count (auto) 0.01 K/uL D-Dimer Quantitative (PE/DVT) 0.53 ug/ml (0-0.50) Glomerular Filtration Rate Calc 58.6 Calcium Level 9.4 mg/dl (8.4-10.2) Total Bilirubin 0.9 mg/dl (0.2-1.3) Aspartate Amino Transf (AST/SGOT) 25 U/L (0-35) Alanine Aminotransferase (ALT/SGPT) 48 U/L (0-56) Alkaline Phosphatase 65 U/L (0-126) B-Type Natriuretic Peptide 754 pg/ml (0-100) Total Protein 6.8 g/dl (6.3-8.2) Albumin 4.1 g/dl (3.5-5.0) Urine Color Yellow Urine Clarity Clear Urine pH 6.0 pH (4.8-9.5) Urine Specific Hartly 1.012 Urine Protein Negative mg/dL (NEGATIVE) Urine Glucose (UA) Negative mg/dL (NEGATIVE) Urine Ketones Negative mg/dL (NEGATIVE) Urine Blood Negative (NEGATIVE) Urine Nitrite Negative (NEGATIVE) Urine Bilirubin Negative (NEGATIVE) Urine Urobilinogen 2.0 mg/dL (0.2-1.9) Urine Leukocyte Esterase Negative (NEGATIVE) Urine RBC <1 /HPF (0-2/HPF) Urine WBC <1 /HPF (0-5/HPF) Urine Squamous Epithelial Cells Few /LPF (</=FEW) Urine Bacteria Negative /HPF (NONE-FEW) Urine Mucus None /HPF (NONE-FEW) Troponin I 0.081 ng/ml Coagulation Test 09/13/18 17:14 D-Dimer Quantitative (PE/DVT) 0.53 ug/ml Urinalysis Test 09/13/18 17:49 Urine Color Yellow Urine Clarity Clear Urine pH 6.0 pH (4.8-9.5) Urine Specific Hartly 1.012 Urine Protein Negative mg/dL (NEGATIVE) Urine Glucose (UA) Negative mg/dL (NEGATIVE) Urine Ketones Negative mg/dL (NEGATIVE) Urine Blood Negative (NEGATIVE) Urine Nitrite Negative (NEGATIVE) Urine Bilirubin Negative (NEGATIVE) Urine Urobilinogen 2.0 mg/dL (0.2-1.9) Urine Leukocyte Esterase Negative (NEGATIVE) Urine RBC <1 /HPF (0-2/HPF) Urine WBC <1 /HPF (0-5/HPF) Urine Squamous Epithelial Cells Few /LPF (</=FEW) Urine Bacteria Negative /HPF (NONE-FEW) Urine Mucus None /HPF (NONE-FEW) (YVROSE FONG DO) EKG/Imaging Imaging X-ray: Two-view chest x-ray was obtained. I viewed the images myself on the PACS system. My interpretation of the images is: No infiltrate, no effusion, normal mediastinum., Comparison to previous chest x-ray dated 08/30/18, no significant change. The radiologist interpretation had no clinically signif icant variation from this interpretation. (YVROSE FONG DO) ED Course/Re-evaluation ED Course Care was assumed at shift change with patient complaining of shortness of breath but no chest pain. Patient had a stent placed approximately 2 weeks ago over at [place]. He's been having shortness of breath. EKG is unchanged. Patient notes that his diastolic is been running in the 120s. Patient was administered clonidine 0.1 mg orally. After observation of 30 minutes. There was no significant change in the diastolic pressure was at 117. Patient was given 10 mg of hydralazine IV to reduce his pressure. 09/13/2018 7:33:34 pm case was discussed with hospitalist, Dr. Gillespie and Dr. Abrams cardiology, who cared for the patient during his previous KS 2 weeks ago 09/13/2018 9:56:23 pm repeat troponin is trending downward from 0.0932 0.081. Patients blood pressure was well controlled after hydralazine 10 mg. After discussing his case with cardiology. We will increase his lisinopril to 5 mg and potentially to 10 mg. Patient's advised to return for any worsening. Decision to Disposition Date: Sep 13, 2018 Decision to Disposition Time: 21:57 (YVROSE FONG DO) Depart Departure Latest Vital Signs Vital Signs Date Time Temp Pulse Resp B/P (MAP) Pulse Ox O2 Delivery O2 Flow Rate FiO2 09/13/18 22:00 115/69 (84) 09/13/18 21:50 50 14 95 09/13/18 18:59 1.0 09/13/18 17:13 98.2 Room Air (HETAL,YVROSE M DO) Impression: Primary Impression: Dyspnea Additional Impression: Non-STEMI (non-ST elevated myocardial infarction) Condition: Improved Disposition: HOME OR SELF-CARE Referrals: [facility] (PCP) Patient Instructions: Dyspnea (ED), Hypertension (ED) Additional Instructions: Increase lisinopril to 5 mg in the morning as planned, if his blood pressures elevated in the evening. He may take another 5 mg, and then increased to 10 mg in the morning on Sunday morning Follow-up with cardiology as planned next week Return to the ER for any worsening Problem Qualifiers Primary Impression: Dyspnea Dyspnea type: unspecified Qualified Codes: R06.00 - Dyspnea, unspecified MADISON CORTES MD Sep 13, 2018 17:47 YVROSE FONG DO Sep 13, 2018 18:25
[2018-09-13 18:03] LABS: PLATELET COUNT, AUTOMATED 216 K/uL (150-450)
[2018-09-13] MEDS ORDERED: hydrALAZINE HCL 20 MG/ML VIAL IVP ONE (18:20)
--- NOTE | 2018-09-13 18:25 | RADIOLOGY IMAGING REPORT ---
[place] [facility] [place] NAME[place] Robert Segundo : 1940 MR: [id number] V: [id number] EXAM DATE: ORDERING PHYSICIAN: MADISON CORTES TECHNOLOGIST: [place] [facility] [place] : 1940 Visit/Account:[id number] Date of Sevice: 09/13/2018 CHEST PA LAT History: sob FINDINGS: Comparison studies: Comparison chest x-ray 08/30/2018 Tubes and Lines: None. Lungs and pleura: Lungs are voluminous hyperaerated with flattened diaphragms and mildly prominent retrosternal airspace. They are well-aerated and there is no evidence of developing pneumonia. Mediastinum: normal. Cardiac silhouette: Borderline upper normal limits in size Osseous structures: Unremarkable for age . IMPRESSION: Suspect COPD. Correlate with smoking history. No acute cardiopulmonary pathology identified. Report Dictated By: Vernon Lowe MD at 09/13/2018 6:16 PM Report E-Signed By: Vernon Lowe MD at 09/13/2018 6:18 PM WSN:[email or web address]
[2018-09-13] MEDS ORDERED: CLOP75TA PO (20:17)
[2018-09-13] MEDS ORDERED: ATOR40TA24 PO (20:17)
[2018-09-13] MEDS ORDERED: LISI5TAB25 PO (20:17)
[2018-09-13] MEDS ORDERED: METO25TA23 PO (20:17)
[2018-09-13] MEDS ORDERED: ASPI-1471 PO (20:17)
[2018-09-13 22:00] VITALS: BP 115/69
== END 2018-09-13 22:16 | disposition home or self-care (01) ==
LOC: ER 17:12
DX: I21.4 Non-ST elevation (NSTEMI) myocardial infarction (principal); I25.2 Old myocardial infarction; Z79.82 Long term (current) use of aspirin; Z79.899 Other long term (current) drug therapy; Z95.5 Presence of coronary angioplasty implant and graft
CPT/HCPCS: 36415; 71046; 81001; 83880; 84484; 85025; 85379; 93005; 96374; 99284; A9270; J0360; 82040; 82247; 82310; 82374; 82435; 82565; 82947; 84075; 84132; 84155; 84295; 84450; 84460; 84520

== ENCOUNTER → 2018-09-13 | Outpatient (CLI) | payer MEDICARE, OTHER ==
[~2018-09-13] MED LIST changes: +ASPI-1471 PO; +ATOR40TA24 PO; +CLOP75TA PO; +LISI5TAB25 PO; +METO25TA23 PO
[2018-09-13 11:07] LABS: PLATELET COUNT, AUTOMATED 211 K/uL (150-450)
[2018-09-13 11:28] LABS: INR 1.23
== END ==
LOC: LAB 10:33
PROVIDERS: ATTEND Physician Assistant
DX: I25.10 Atherosclerotic heart disease of native coronary artery without angina pectoris (principal)
CPT/HCPCS: 36415; 82310; 82374; 82435; 82565; 82947; 84132; 84295; 84520; 85025; 85610

== ENCOUNTER → 2018-09-30 | Outpatient (CLI) | payer MEDICARE, OTHER ==
[~2018-09-30] MED LIST changes: +ASPI-1471 PO; +ATOR40TA24 PO; +CLOP75TA PO; +LISI5TAB25 PO; +METO25TA23 PO
[2018-09-30 15:58] LABS: PLATELET COUNT, AUTOMATED 211 K/uL (150-450)
== END ==
LOC: LAB 15:25
PROVIDERS: ATTEND Nurse Practitioner Family
DX: R22.1 Localized swelling, mass and lump, neck (principal); J02.9 Acute pharyngitis, unspecified
CPT/HCPCS: 36415; 84443; 85025

== ENCOUNTER → 2018-10-04 | Outpatient (CLI) | payer MEDICARE, OTHER ==
--- NOTE | 2018-10-04 16:50 | RADIOLOGY IMAGING REPORT ---
FACILITY: [facility] PATIENT NAME: Robert Segundo : 1940 MR: [id number] V: [id number] EXAM DATE: ORDERING PHYSICIAN: AMIE MITTAL TECHNOLOGIST: Location: [facility] [place] Patient: Robert Segundo : 1940 Visit/Account:[id number] Date of Sevice: 10/04/2018 THYROID Indication: 78-year-old male. Evaluate for potential mass in the neck. Evaluate the thyroid gland. Comparison study: None Procedure: There has been satisfactory grayscale ultrasonic evaluation of the thyroid gland. Findings: Right lobe: The right lobe measures 4.7 cm x 2.1 cm x 1.4 cm in its sagittal, transverse and AP dimen sions. No findings of a dominant nodule. Left lobe: The left lobe measures 4.8 cm x 2.1 cm x 1.4 cm in its sagittal, transverse and AP dimensi ons. No findings of a nodule in the left lobe. IMPRESSION: Normal ultrasound of the thyroid gland. No findings of a dominant nodule in the right or left lobe. Report Dictated By: Murphy Calvillo MD at 10/04/2018 4:41 PM Report E-Signed By: Murphy Calvillo MD at 10/04/2018 4:42 PM WSN:[email or web address]
--- NOTE | 2018-10-04 16:55 | RADIOLOGY IMAGING REPORT ---
FACILITY: [facility] [place] PATIENT NAME: Robert Segundo : 1940 MR: [id number] V: [id number] EXAM DATE: ORDERING PHYSICIAN: AMIE MITTAL TECHNOLOGIST: Location: [facility] Patient: Robert Segundo : 1940 Visit/Account:[id number] Date of Sevice: 10/04/2018 SOFT TISSUE HEAD NECK History: Neck mass. Procedure: There has been satisfactory grayscale ultrasonic evaluation of the anterior neck. Comparison study: None. Findings: Ultrasonic evaluation of the neck shows a predominantly cystic structure that may have some septations. The structure measures 4.2 x 2.2 x 5.6 cm in size. Its location in the submandibular r egion suggestive may represent a thyroglossal duct cyst or perhaps congenital cyst of alternative micah ology. Unfortunately there are consultative features such as thickening of the outer wall and process engineering intern al folds or septations. A CT scan with intravenous contrast is recommended for further evaluation. IMPRESSION: Irregular predominantly cystic mass in the submandibular region towards the left side. T he mass measures 4.2 x 2.2 x 5.6 centers in size. It has a thickened external capsule with folds and possibly septations in it. While it could represent a congenital cyst of some kind a mass cannot be excluded. A CT scan of the neck with intravenous contrast is recommended for further evaluation. Results were called to AMIE MITTAL M.D. At 10/04/2018 4:46 PM. Report Dictated By: Murphy Calvillo MD at 10/04/2018 4:42 PM Report E-Signed By: Murphy Calvillo MD at 10/04/2018 4:47 PM WSN:[email or web address]
== END ==
LOC: US 01:40
PROVIDERS: ATTEND Nurse Practitioner Family
DX: R22.1 Localized swelling, mass and lump, neck (principal); R13.10 Dysphagia, unspecified
CPT/HCPCS: 76536